=== PATIENT | male | born 1965 | race Caucasian/White ===

== ENCOUNTER 2018-12-27 22:57 | Emergency (ER) | payer MEDICAID, SELFPAY ==
[2018-12-27 22:58] VITALS: BP 167/103; PULSE 106; RESP 20; TEMP 36.6; O2SAT 96; BMI 30.1
--- NOTE | 2018-12-27 23:02 | EKG12_ITS ---
Test Reason : CP Blood Pressure : / mmHG Vent. Rate : 105 BPM Atrial Rate : 105 BPM P-R Int : 142 ms QRS Dur : 094 ms QT Int : 338 ms P-R-T Axes : 060 090 004 degrees QTc Int : 446 ms Sinus tachycardia Rightward axis Cannot rule out Inferior infarct , age undetermined Abnormal ECG Confirmed by EAN AGOSTO ([id number]), associate editor SONDRA HANEY ([id number]) on 01/01/2019 2:40:54 PM Referred By: Confirmed By:EAN AGOSTO
--- NOTE | 2018-12-27 23:02 | RAD_ITS ---
STUDY: X-RAY CHEST REASON FOR EXAM: Male, 53 years old. Chest pain TECHNIQUE: Frontal view COMPARISON: None. FINDINGS: The lungs are expanded. Possible left suprahilar infiltrate. Cardiomegaly. Normal mediastinum and javi. Prominence of central pulmonary arteries. Normal visualized aortic arch and descending thoracic aorta. Normal visualized thoracic spine. Normal visualized ribs, clavicles, and shoulders. There is no demonstrated abnormality of the visualized soft tissue structures of the upper abdomen. RAD/Chest 1 View (Portable) IMPRESSION: Cardiomegaly and central pulmonary vascular prominence. Possible left suprahilar infiltrate. Electronically Signed: Esteban Coppola DO at 23:21 EDT Tel [phone], Service support ,
[2018-12-27 23:20] VITALS: O2SAT 96
[2018-12-27 23:22] LABS: Hematocrit 36.2 % (40-54); Hemoglobin 11.6 g/dL (13.0-16.5); Mean Corpuscular Hgb 29.7 pg (27.0-32.0); Mean Corpuscular Volume 92.6 fL (80-94); Mean Platelet Vol. 10.3 fl (6.2-12.0); POSITIVE COUNT YES; POSITIVE MORPHOLOGY YES; Platelet Count 209 K/mm3 (150-450); RBC Distribution Width CV 14.8 % (11.6-14.6); RBC Distribution Width SD 49.4 fl (35.1-43.9); Red Blood Count 3.91 M/mm3 (4.6-6.2); White Blood Count 13.2 K/mm3 (4.4-11.0)
[2018-12-27 23:24] LABS: Differential Indicated MANUAL DIFF
--- NOTE | 2018-12-27 23:30 | ED.VIS.GEN ---
History of Present Illness Chief Complaint: Chest Pain Narrative: Patient is a 53-year-old male who presents with shortness of breath. This is been going on for about 6 weeks. He also complains of cough and wheezing. He took some leftover steroid and antibiotic actually from many years ago. He states he had transient improvement but again worsened. He was seen in urgent care and prescribed doxycycline and a steroid. He took these and again transiently improved but has been more short of breath the last couple of days. He has nonproductive cough. He denies any fever chest pain nausea vomiting. He denies any medical history he takes no daily prescription medications. He has completed the doxycycline and steroids. Past Medical History - Allergies and Home Meds Allergies/Adverse Reactions: Allergies No Known Allergies Allergy (Verified 12/27/18 22:57) Primary Care Physician: Gopal Garcia MD [Primary Care Provider] - Past Medical History: None Smoking Status: Current every day smoker Review of Systems All systems negative except as indicated General: Denies: Fever Cardiovascular: Denies: Chest pain Respiratory: Reports: Dyspnea, Cough. Denies: Sputum Gastrointestinal: Denies: Nausea, Vomiting, Diarrhea Physical Exam Vital Signs/Narrative: Vital Signs Temp Pulse Resp BP Pulse Ox 12/27/18 23:20 96 12/27/18 22:58 97.9 F 106 H 20 H 167/103 H 96 General: Well nourished Head: Normocephalic Eyes: EOMI ENT: Moist mucous membranes Neck: Supple Cardiovascular: - - Heart is regular tachycardia no murmur gallop rub Respiratory: No distress, - - Scattered expiratory wheezing lightly diminished air exchange no distress speaking full sentences no increased work of breathing or retractions. Negative for: CTA bilaterally Abdomen: Soft, Nontender Skin: Normal color Neurological: Alert Psychological: - - Anxious with pressured speech Diagnostic/Tx/Re-eval Impressions Chest X-Ray 12/27/18 23:02 IMPRESSION: Cardiomegaly and central pulmonary vascular prominence. Possible left suprahilar infiltrate. Electronically Signed: Esteban Coppola DO at 23:21 EDT Tel [phone], Service support , 12/27/18 23:02 Chest 1 View (Portable) [RAD] Stat Laboratory Results 12/27/18 12/27/18 23:15 23:15 WBC 13.2 H RBC 3.91 L Hgb 11.6 L Hct 36.2 L MCV 92.6 MCH 29.7 MCHC 32.0 RDW Std Deviation 49.4 H RDW Coeff of Ismael 14.8 H Plt Count 209 MPV 10.3 Neut % (Auto) Not Reportable Absolute Neuts (auto) 8.2 H Absolute Lymphs (auto) 4.09 Total Counted 100 Neutrophils % (Manual) 61 Band Neutrophils % 1 Lymphocytes % (Manual) 31 Monocytes % (Manual) 5 Eosinophils % (Manual) 1 Metamyelocytes % 1 Nucleated RBCs/100 WBC 1 Diff Path Review May foll Platelet Estimate ADEQUATE RBC Morphology NORM C+C Sodium 142 Potassium 3.6 Chloride 108 H Carbon Dioxide 28.0 Anion Gap 6 BUN 24 H Creatinine 0.72 Estim Creat Clear Calc 125.33 Est GFR (MDRD) Af Amer 149 Est GFR (MDRD) Non-Af 123 BUN/Creatinine Ratio 33.5 H Glucose 124 H Calcium 8.1 L Troponin I Cancelled - Medical Decision Making As soon as I entered the room the patient immediately notified me that he was not willing to stay in the hospital. Before I can complete the history he was already asking how quickly he can be discharged. He was hesitant to wait for laboratory studies although he was agreeable. Chest x-ray was taken off of protocol. This shows cardiomegaly with central vascular prominence without overt CHF or pulmonary edema. There is questionable left-sided infiltrate. His presentation is suggestive of pneumonia. He was given IV Levaquin. Labs returned notable for white count of 13.2. I was with a critical patient and on return I was notified by nursing that the patient had eloped from the emergency department. He was not willing to wait to speak to me regarding results. I did have nurse call him to notify them that he did have pneumonia and we will call in a prescription for Levaquin. ED Disposition - Plan for ED Patient: Diagnosis: Community acquired pneumonia Referrals: Gopal Garcia MD [Primary Care Provider] -
[2018-12-27 23:39] LABS: Anion Gap 6 (5-15); BUN 24 mg/dL (7-18); BUN/Creat Ratio 33.5 RATIO (10-20); Calcium,Total 8.1 mg/dL (8.5-10.1); Chloride 108 mmol/L (98-107); Creatinine, Serum 0.72 mg/dL (0.70-1.30); EST Glomerular Filtration Rate 123 mL/min (>60); Est Glom Filt Rate - Afr Amer 149 mL/min (>60); Estimated Creatinine Clearance 125.33 ml/min; Glucose 124 mg/dL (74-106); Potassium 3.6 mmol/L (3.5-5.1); Sodium Level 142 mmol/L (136-145)
[2018-12-27 23:41] VITALS: PULSE 97; RESP 12
[2018-12-27] MEDS: Ipratropium/Albuterol Sulfate 3 ML AMPUL.NEB INHALATION (23:41)
[2018-12-27 23:48] LABS: Eosinophil 1 % (0-5); Lymphocyte 31 % (19-41); Metamyelocyte 1 % (0-1); Monocyte 5 % (0-10); Neutrophil-Band 1 % (0-5); Neutrophil-Segmented 61 % (47-70); Nucleated Red Bld Cells,Manual 1 % (0-5); Total Cells Counted 100 (MANUAL DIFF)
[2018-12-27 23:49] LABS: Absolute Lymphocyte Count 4.09 X10^3/uL (0.83-4.51); Absolute Neutrophil Count 8.2 X10^3/uL (2.0-7.7); Lymphocyte # 4.09 X10^3/ul (4.0); Neutrophil # 8.18 X10^3/uL (2.7-7.7); Platelet Estimate ADEQUATE (ADEQ); Red Cell Morphology NORM C+C NORMAL (NORM C&C)
[2018-12-27] MEDS: levoFLOXacin IV 500 MG/100 ML BAG 100 MG IV (23:52)
[2018-12-28 01:00] VITALS: PULSE 107; RESP 16; O2SAT 96
--- NOTE | 2018-12-28 01:21 | ED.RN ---
PT NOTED TO BE ANXIOUS IN ROOM AND PULLED OUT IV. PT STATES HE NEEDS TO GO HOME NOW AND CANNOT WAIT FOR D/C INSTRUCTIONS.
--- NOTE | 2018-12-28 01:22 | ED.RN ---
DR GALICIA MADE AWARE THAT PATIENT LEFT. VD VERBAL ORDER FROM DR GALICIA TO CALL IN RX TO [facility] FOR LEVAQUIN 500 MG PO DAILY X 7 DAYS. NO REFILLS. PHONED PATIENT AND INFORMED HIM TO [facility] [employer] [facility] @ [facility] TOMORROW.
[2018-12-28 01:25] VITALS: PULSE 107; RESP 16; O2SAT 96
[2018-12-28 12:45] LABS: Pathologist Review Reviewed
== END 2018-12-28 02:12 | disposition home or self-care (01) ==
LOC: ED 23:35
PROVIDERS: Emergency Provider Emergency Medicine; Family Provider Family Medicine; PCP Family Medicine
DX: J18.9 Pneumonia, unspecified organism (principal); F17.200 Nicotine dependence, unspecified, uncomplicated
CPT/HCPCS: 71045; 80048; 85025; 93005; 94640; 96365; 99285; A4216

== ENCOUNTER 2018-12-29 09:51 | Emergency (ER) | payer MEDICAID, SELFPAY ==
[2018-12-29 09:52] VITALS: BP 159/104; PULSE 88; RESP 25; TEMP 36.7; O2SAT 96; BMI 30.1
--- NOTE | 2018-12-29 09:53 | EKG12_ITS ---
Test Reason : SOB Blood Pressure : / mmHG Vent. Rate : 086 BPM Atrial Rate : 086 BPM P-R Int : 136 ms QRS Dur : 098 ms QT Int : 382 ms P-R-T Axes : 010 046 045 degrees QTc Int : 457 ms Normal sinus rhythm Normal ECG Confirmed by EAN AGOSTO ([id number]), editorial assistant SONDRA HANEY ([id number]) on 01/01/2019 2:28:38 PM Referred By: DAMION/BARB Confirmed By:EAN AGOSTO
--- NOTE | 2018-12-29 09:54 | CT_ITS ---
STUDY: CT ABDOMEN AND PELVIS WITH CONTRAST REASON FOR EXAM: Male, 53 years old. Abdominal distention. RADIATION DOSAGE (If Supplied By Facility): CTDIvol = ( 13.01 ) mGy, DLP = ( 1011.32 ) mGycm TECHNIQUE: Transaxial images were obtained from the dome of the diaphragm to the symphysis pubis without oral contrast. 100CC IV Isovue 300 was administered. Sagittal and coronal images were reconstructed. Individualized dose optimization techniques were used for this CT. COMPARISON: None. FINDINGS: Thickening of the left major fissure with mild increased markings in the posterior aspect of the lingular segment of the left upper lobe. There is a 7 mm noncalcified nodule in the right lower lobe adjacent to the right hemidiaphragm. A 7 mm nodule is also seen in the lateral aspect of the right lower lobe as seen on axial image #5. Small pericardial effusion. Multiple bilateral hypodense nodules within the liver. Metastatic disease should be ruled out. Hepatomegaly. Normal gallbladder and extrahepatic biliary system. Normal spleen. Normal pancreas. Normal bilateral adrenal glands. Normal right kidney. Normal left kidney. Nonspecific mild degree of bilateral perinephric stranding. Normal visualized stomach. Normal small intestine. Normal colon. The appendix is visualized and appears normal. There is diffuse atherosclerotic calcification of the abdominal aorta, without a demonstrated aneurysm. Normal inferior vena cava. Normal retroperitoneum. Normal urinary bladder. There is a small umbilical hernia containing fat. Small bilateral inguinal hernias containing fat. There are degenerative changes of the visualized lumbar spine. CT/Abdomen/Pelvis W IV Cont ONLY IMPRESSION: Multiple hypodense lesions within the liver as described. Metastatic deposits should be ruled out. With the patient's history of a infiltrate in the left upper lobe, an underlying left upper lobe mass lesion should be ruled out. Hepatomegaly. Small pericardial effusion. There are 2 subcentimeter noncalcified nodular densities in the right lower lobe. Electronically Signed: Portillo Asher, at 10:58 EDT , Service support ,
[2018-12-29 09:55] VITALS: O2SAT 97
--- NOTE | 2018-12-29 09:58 | NURSING ---
NO OLD EKGS
[2018-12-29 09:59] VITALS: BP 144/95; PULSE 91; RESP 19; TEMP 36.7; O2SAT 97
--- NOTE | 2018-12-29 10:05 | ED.DCSUM_ITS ---
- ER Visit Summary Date of Service: 12/29/18 Chief Complaint: Shortness of breath History of Present Illness: The patient is a 53 M no significant past medical history. Prior knee scope years ago. Patient is on no chronic medications. States the last 2 months he has had intermittent shortness of breath and cough. He treated himself with prior antibiotics he had and yjlj-elz-solqegy medications. He has progressively gotten worse and not significantly better. In the last several weeks he has noticed weight gain and fluid collection and swelling in both lower extremities. He denies any history of cardiac disease. He has never had a DVT or PE. He has had no recent travel, surgery or hospitalization. He was actually seen in this emergency department 2 days ago. At that time the working diagnosis was either pneumonia or early stages of congestive heart failure. Patient was concerned about being able to get to work and other issues so he left prior to the work-up being completed or being discharged. He was called by the emergency department and started on antibiotic Levaquin. He has progressively gotten more short of breath over the last several days. He is having to sit upright in a chair to sleep at night to help him breathe. No significant chest pain over the last several months except for some left rib cage pain. No hemoptysis. Physical Examination: Middle-aged male no acute distress. Vital signs blood pressure is elevated 159/104. He is not treated for hypertension. Afebrile. Pulse ox 96% on room air no hypoxia. HEENT exam unremarkable. Neck nontender no lymphadenopathy. No JVD. Lungs clear to auscultation. Slightly diminished in the bases. No rhonchi. No significant wheezing. Heart regular rhythm no obvious murmur. Rate about 85-90. Abdomen is distended. Not specifically tender. Normal bowel sounds. No peritoneal signs. Patient is moving all 4 extremities. They are neurovascularly intact. He does have 1+ pitting edema both lower extremities. Calves are nontender. No cords. Neurologically he is awake and alert with no focal motor deficits. Skin is unremarkable. Test Results: Chest x-ray has appears to be a left hilar pneumonia possibly a left hilar mass. CT abdomen and pelvis with IV contrast shows liver lesions very concerning for possible metastases. There is also hepatomegaly. There is a small pericardial effusion. EKG sinus rhythm rate 86 no acute signs of IA or ischemia. White count of 13.8. Hemoglobin of 12. Electrolytes are normal. Normal BUN and creatinine is 0.6. Liver enzymes are normal except for an ALT slightly elevated at 69 the rest are normal. Troponin is normal. His d-dimer is normal at 0.27 BNP is pending. Emergency Department Course and Treatment: I reviewed the patient's work-up from several days ago. This chest x-ray was portable one view showed some cardiomegaly and possible early pulmonary edema versus a left upper lobe infiltrate. He had a mild anemia. Chemistries are unremarkable with normal renal function. Multiple repeat exams unchanged. The patient I have had long discussions on the possible diagnosis and will be continued to be treated he is currently on antibiotic for a left upper lobe pneumonia. The bigger concern is for left hilar lung mass and if that is the case with possible liver metastases. This is all to be determined. Patient absolutely does not want to be admitted. He wants to be worked up as an outpatient. Treatment Plan: I spoke with Dr. Spenser Muñoz of [facility] oncology. He will see the patient today in his office at 3:45 PM. Patient is aware that and will go to their office later today. Disposition: Discharge Impression: Acute dyspnea Left upper lobe pneumonia Concern for left hilar mass with liver metastases to be determined on further evaluation Acute bilateral pedal edema This note was generated with [employer] dictation software. It may contain incorrect words, spelling, and punctuation that were not noted in review of the chart prior to signing ED Disposition - Plan for ED Patient: Referrals: Gopal Garcia MD [NON-STAFF] -
--- NOTE | 2018-12-29 10:14 | RAD_ITS ---
STUDY: X-RAY CHEST REASON FOR EXAM: Male, 53 years old. Chest pain. TECHNIQUE: PA and lateral views of the chest. COMPARISON: Comparison is made with prior study March 28, 2019. FINDINGS: EKG electrodes are seen. Worsening of the left upper lobe infiltrate. Radiographic follow-up is recommended until clearing. There is no demonstrated pleural abnormality. Normal size heart. Normal mediastinum and javi. Normal visualized pulmonary arteries. Normal visualized aortic arch and descending thoracic aorta. Normal visualized thoracic spine. Normal visualized ribs, clavicles, and shoulders. There is no demonstrated abnormality of the visualized soft tissue structures of the upper abdomen. RAD/Chest PA and Lateral IMPRESSION: Left upper lobe infiltration. Radiographic follow-up is recommended until clearing. Electronically Signed: Portillo Asher, at 10:53 EDT , Service support ,
[2018-12-29 10:15] LABS: Hematocrit 37.8 % (40-54); Hemoglobin 12.2 g/dL (13.0-16.5); Mean Corp Hgb Conc 32.3 g/dL (32-36); Mean Corpuscular Hgb 30.2 pg (27.0-32.0); Mean Corpuscular Volume 93.6 fL (80-94); Mean Platelet Vol. 10.7 fl (6.2-12.0); POSITIVE COUNT YES; POSITIVE MORPHOLOGY YES; Platelet Count 209 K/mm3 (150-450); RBC Distribution Width CV 14.5 % (11.6-14.6); RBC Distribution Width SD 49.6 fl (35.1-43.9); Red Blood Count 4.04 M/mm3 (4.6-6.2); White Blood Count 13.8 K/mm3 (4.4-11.0)
[2018-12-29 10:32] LABS: AST(SGOT) 29 U/L (15-37); Alanine Aminotransfer ALT/SGPT 69 U/L (16-61); Albumin, Serum 3.2 g/dL (3.2-5.0); Alkaline Phosphatase 52 U/L (45-117); BUN 20 mg/dL (7-18); Bilirubin, Direct 0.06 mg/dL (0.00-0.30); Calcium,Total 8.1 mg/dL (8.5-10.1); Chloride 103 mmol/L (98-107); Creatinine, Serum 0.67 mg/dL (0.70-1.30); EST Glomerular Filtration Rate 134 mL/min (>60); Est Glom Filt Rate - Afr Amer 162 mL/min (>60); Estimated Creatinine Clearance 134.68 ml/min; Globulin 3.6 g/dL (2.2-4.2); Glucose 89 mg/dL (74-106); Potassium 3.3 mmol/L (3.5-5.1); Protein, Total 6.8 g/dL (6.4-8.2); Sodium Level 139 mmol/L (136-145)
[2018-12-29 10:33] LABS: Anion Gap 5 (5-15)
--- NOTE | 2018-12-29 10:40 | CM.ED ---
SOCIAL WORK INFORMANT: DR. DAY REASON FOR REFERRAL: RESOURCES/FINANCIAL MET WITH PATIENT IN ROOM. INTRODUCED ROLE AND REASON FOR REFERRAL. PATIENT STATES CANCELLED INSURANCE A COUPLE MONTHS AGO BEFORE ALL THIS HAPPENED. PATIENT STATES HOURS AT WORK VARY AND IS UNSURE IF HE WOULD QUALIFY FOR MEDICAID. DISCUSSED HCAP FORM AND ENCOURAGED PATIENT TO COMPLETE FORM AND SEND BACK TO HOSPITAL. PATIENT STATES WOULD BE ABLE TO WORK OUT A PAYMENT PLAN. PATIENT REPORTS HAS NOT BEEN TO PRIMARY CARE PHYSICIAN IN SOME TIME. PATIENT GIVEN LIST OF LOCAL PRIMARY CARE PHYSICIAN'S IF NEEDED. ALL QUESTIONS ANSWERED. PATIENT DENIES ANY FURTHER NEEDS AT THIS TIME. DR. DAY UPDATED. PLAN: HOME WITH RESOURCES PROVIDED. LULU SCHMITZ, BUSINESS ANALYST, POWER AND RECOVERY SUPERVISOR.
[2018-12-29 11:38] LABS: D-Dimer Quantitative (DVT/PE) 0.27 FEU/ug/m (0.27-0.49)
[2018-12-29 11:49] LABS: Differential Indicated MANUAL DIFF
[2018-12-29 11:53] LABS: Eosinophil 1 % (0-5); Lymphocyte 22 % (19-41); Metamyelocyte 3 % (0-1); Monocyte 3 % (0-10); Myelocyte 1 (0-0); Neutrophil-Band 1 % (0-5); Neutrophil-Segmented 69 % (47-70); Platelet Estimate ADEQUATE (ADEQ); Red Cell Morphology NORM C+C NORMAL (NORM C&C); Total Cells Counted 100 (MANUAL DIFF)
[2018-12-29 11:54] LABS: Absolute Neutrophil Count 9.6 X10^3/uL (2.0-7.7)
--- NOTE | 2018-12-29 12:17 | ED.DEP ---
ED Disposition - Plan for ED Patient: Disposition: Home or Assisted Living Instructions: PNEUMONIA (Adult) Referrals: Spenser Muñoz, [STAFF PHYSICIAN] - As soon as possible Additional Instructions: Continue your current antibiotic. You are scheduled for an appointment today to be seen by Dr. Spenser Muñoz at 3:45 PM in his office on the [facility] called the specialty center on [facility] and [address]. You will need further test to evaluate the concern for possible left lung mass and if so any spread outside the lung. Call me with any questions or concerns.
[2018-12-29 12:20] LABS: BNP,B-Type NATRIURETIC PEPTIDE 26.1 pg/mL (0-100)
[2019-01-01 13:24] LABS: Pathologist Review Reviewed
== END 2018-12-29 12:31 | disposition home or self-care (01) ==
PROVIDERS: Emergency Provider Emergency Medicine
DX: J18.9 Pneumonia, unspecified organism (principal); R60.9 Edema, unspecified; R06.09 Other forms of dyspnea; M79.89 Other specified soft tissue disorders; R91.8 Other nonspecific abnormal finding of lung field; K76.9 Liver disease, unspecified; R16.0 Hepatomegaly, not elsewhere classified; I31.3 Pericardial effusion (noninflammatory); R03.0 Elevated blood-pressure reading, without diagnosis of hypertension; Z72.0 Tobacco use; Z79.899 Other long term (current) drug therapy
CPT/HCPCS: 71046; 74177; 80048; 80076; 83880; 84484; 85025; 85379; 93005; 99284; Q9967; A4216

== ENCOUNTER 2019-02-08 23:10 | Emergency (ER) | payer MEDICAID, SELFPAY ==
[2019-02-08 23:12] VITALS: BP 145/95; PULSE 110; RESP 18; TEMP 36.8; O2SAT 93; BMI 26.5
--- NOTE | 2019-02-08 23:29 | RAD_ITS ---
STUDY: X-RAY CHEST REASON FOR EXAM: Male, 53 years old. Lung cancer and filling shortness of breath. TECHNIQUE: Single AP portable view of the chest. COMPARISON: 29 December 2018 FINDINGS: Compared to and December 2018 there is reduced. Airspace disease overlying the left upper lobe. There is no demonstrated pleural abnormality. Heart size is enlarged with underlying pericardial effusion not excluded Normal mediastinum and javi. Normal visualized pulmonary arteries. Normal visualized aortic arch and descending thoracic aorta. Normal visualized thoracic spine. Normal visualized ribs, clavicles, and shoulders. There is no demonstrated abnormality of the visualized soft tissue structures of the upper abdomen. RAD/Chest 1 View (Portable) IMPRESSION: Reduced left upper lobe airspace disease from previous prominent heart size and underlying pericardial effusion not excluded as seen on prior CT exam. Electronically Signed: Jevon Boateng DO at 23:42 EDT , Service support ,
[2019-02-08 23:42] VITALS: TEMP 37.1; O2SAT 96; O2SAT 97
[2019-02-08] MEDS: HYDROmorphone 1 MG/ML Syringe IV (23:54)
[2019-02-08 23:57] LABS: Hemoglobin 8.5 g/dL (13.0-16.5); Mean Corp Hgb Conc 31.5 g/dL (32-36); Mean Corpuscular Hgb 29.6 pg (27.0-32.0); Mean Corpuscular Volume 94.1 fL (80-94); Mean Platelet Vol. 11.7 fl (6.2-12.0); POSITIVE COUNT YES; POSITIVE MORPHOLOGY YES; RBC Distribution Width CV 15.9 % (11.6-14.6); RBC Distribution Width SD 51.5 fl (35.1-43.9); Red Blood Count 2.87 M/mm3 (4.6-6.2)
[2019-02-09 00:01] LABS: International Normalized Ratio 1.1
[2019-02-09 00:02] LABS: Differential Indicated MANUAL DIFF; Partial Thromboplast Time 25.3 Seconds (24.1-36.2)
[2019-02-09 00:14] VITALS: BP 135/67; PULSE 101; RESP 20; TEMP 37.2; O2SAT 98
[2019-02-09 00:14] LABS: Platelet Count 46 K/mm3 (150-450)
[2019-02-09 00:24] LABS: AST(SGOT) 28 U/L (15-37); Alanine Aminotransfer ALT/SGPT 42 U/L (16-61); Albumin, Serum 2.4 g/dL (3.2-5.0); Alkaline Phosphatase 91 U/L (45-117); Anion Gap 7 (5-15); BUN 24 mg/dL (7-18); BUN/Creat Ratio 27.1 RATIO (10-20); Bilirubin, Direct 0.08 mg/dL (0.00-0.30); Calcium,Total 7.6 mg/dL (8.5-10.1); Chloride 88 mmol/L (98-107); Creatinine, Serum 0.88 mg/dL (0.70-1.30); EST Glomerular Filtration Rate 96 mL/min (>60); Est Glom Filt Rate - Afr Amer 116 mL/min (>60); Estimated Creatinine Clearance 102.54 ml/min; Globulin 3.8 g/dL (2.2-4.2); Glucose 223 mg/dL (74-106); Lipase 172 U/L (73-393); Potassium 2.2 mmol/L (3.5-5.1); Protein, Total 6.2 g/dL (6.4-8.2); Sodium Level 139 mmol/L (136-145)
--- NOTE | 2019-02-09 00:30 | CT_ITS ---
STUDY: CTA CHEST REASON FOR EXAM: Male, 53 years old. Shortness of breath. Small cell lung cancer, undergoing radiation and immune therapy. RADIATION DOSAGE (If Supplied By Facility): CTDIvol = ( 16.20 ) mGy, DLP = ( 614.54 ) mGycm TECHNIQUE: The examination was performed with the intravenous administration of IV 75mL Isovue-370 75ML. Post-processing of the angiographic images was performed, with MIP reconstructed images. Individualized dose optimization techniques were used for this CT. COMPARISON: Chest radiographs 02/08/2019. CT abdomen pelvis 12/29/2018. No prior chest CT for comparison.. FINDINGS: Heart and great vessels: No pulmonary embolus. The left main, lobar, and proximal segmental pulmonary arteries are encased and markedly narrowed by a large left hilar mass. No dissection or aneurysm of the thoracic aorta. Heart size within normal limits. 1.9 cm thick simple density moderate in sized pericardial effusion. Coronary artery atherosclerosis which is not well evaluated because of cardiac motion. The left superior pulmonary veins are also encased by the mass. Lungs, pleura: Irregular in contour nodular densities left upper lobe, 1.4 x 0.7 cm diameter in the apical posterior segment series 2 image 227, and more inferiorly a 1.5 cm nodule which extends toward the left hilar mass. Several inferior lingular nodules, largest 1.0 cm diameter series 2 image 183. The left main, lobar and proximal segmental bronchi are encased by the left hilar mass, with wall thickening of more peripheral branches. There is groundglass attenuation and nodular interstitial prominence adjacent to the left hilar mass particularly along the cephalad aspect. And nodular thickening along the cephalad aspect of the fissure. 7 mm nodule along the fissure between the right middle lobe and right upper lobe anteriorly, series 2 image 172, configuration suggestive of a lymph node. 6 mm nodule posterior lateral aspect right lung base series 2 image 130. Otherwise mild dependent atelectasis in the right lung. The trachea is elongated in AP direction compatible with underlying COPD. Mediastinum: Large confluent mass centered in the left hilum, encasing left hilar bronchovascular structures, and contiguous with confluent adenopathy which surrounds the distal trachea and alana, abuts the left lateral aspect and anterior esophagus, and surrounds about three quarters of the aortic arch with no fat plane between the mass and the aorta. Separate from the mass, are several enlarged paratracheal, prevascular and bilateral supraclavicular lymph nodes which are larger on the left. Osseous: No fracture or acute osseous abnormality. No aggressive osseous lesions are evident. Chest wall: Right axillary adenopathy. Nodular skin thickening in the anterior aspect of the right axilla. Upper abdomen: No acute findings. Mild enlargement of both adrenal glands but without definite focal mass. The hypodense hepatic masses seen on the previous CT abdomen and pelvis are difficult to visualize. A small lesion is faintly visible in the anterior aspect of the left lobe. CT/CTA Chest W/WO Contrast IMPRESSION: No pulmonary embolus. Moderate simple density pericardial effusion. Large mass centered in the left hilum encasing and narrowing bronchovascular structures including the left main and lobar pulmonary arteries and bronchi. Likely metastatic nodular densities in the adjacent left upper lobe. Ground glass attenuation and interstitial prominence in the left perihilar lung could represent interstitial spread of tumor, congestive changes due to vascular encasement, or edema or pneumonia or a combination. Metastatic mediastinal and left greater than right supraclavicular adenopathy. Nodular thickening of the skin in the right anterior axilla with underlying adenopathy also concerning for metastatic disease. The hepatic lesions seen on the previous CT abdomen and pelvis are difficult to visualize suggesting response to treatment. There is adrenal enlargement which is new compared to prior but without focal mass; this could represent hyperplasia. Comparison with prior chest CT would be helpful. Electronically Signed: Higinio Ruiz, at 1:36 EDT Tel , Service support ,
--- NOTE | 2019-02-09 00:33 | ED.RN ---
lab called with critical lab results. potassium level 2.2. Dr. Duckworth made aware no new orders at this time
[2019-02-09 00:44] LABS: Corrected WBC 15.7 K/mm3 (4.4-11.0); Lymphocyte 18 % (19-41); Metamyelocyte 13 % (0-1); Monocyte 2 % (0-10); Myelocyte 3 (0-0); Neutrophil-Band 24 % (0-5); Neutrophil-Segmented 40 % (47-70); Nucleated Red Bld Cells,Manual 17 % (0-5); Total Cells Counted 100 (MANUAL DIFF)
[2019-02-09 00:46] LABS: Toxic Granulation 1+
[2019-02-09 00:47] LABS: Anisocytosis 1+; Hypochromasia 1+; Platelet Estimate MKD DEC (ADEQ); Polychromasia RARE
[2019-02-09 00:48] LABS: Spherocyte RARE
[2019-02-09 00:49] LABS: Macrocytosis RARE
[2019-02-09 00:51] LABS: Absolute Lymphocyte Count 2.93 X10^3/uL (0.83-4.51); Absolute Neutrophil Count 10.1 X10^3/uL (2.0-7.7); Lymphocyte # 2.93 X10^3/ul (4.0); Neutrophil # 10.05 X10^3/uL (2.7-7.7)
[2019-02-09] MEDS: Potassium Chloride 10mEq/100mL 10 MEQ/100 ML IV.SOLN. 100 MEQ IV BOLUS ×2 (00:59→02:47)
[2019-02-09 01:13] VITALS: BP 138/80; PULSE 102; RESP 21; TEMP 37.1; O2SAT 95
[2019-02-09 01:54] LABS: Magnesium 1.5 mg/dL (1.6-2.6)
[2019-02-09 02:00] VITALS: BP 135/85; PULSE 90; RESP 20; TEMP 37.2; O2SAT 98
--- NOTE | 2019-02-09 02:15 | ED.VISSUMM ---
- ER Visit Summary Date of Service: 02/09/19 Chief Complaint: Shortness of breath History of Present Illness: The patient is a 53 M who tells me that he is currently undergoing treatment for small cell lung cancer. A few days ago began to have a wound appear in the right axilla. He states he was put on Augmentin yesterday. Tonight he states he abruptly got short of breath. He notes his legs are more swollen than normal. He notes that he has been not been able to take his potassium because of how large the pills are. He notes that his right arm is swollen compared to the left. He notes redness from an IV site on the right forearm. Female the room notes that it is gotten worse. He notes minimal cough. His last chemotherapy was about 2 weeks ago. He denies fever. Physical Examination: Afebrile vital signs are stable heart rate noted to be 100-110. Gen: Well-nourished well-developed Head: Normocephalic atraumatic Eyes: Perrl EOMI ENT: TMs clear no rhinorrhea moist mucous membranes Neck: Supple no lymphadenopathy no JVD nontender CVS: Regular rate tachycardic rhythm no murmurs normal S1-S2 Respiratory: Patient with mild tachypnea but no distress clear to auscultation bilaterally chest nontender Abdomen: Soft nontender nondistended normal bowel sounds no masses Back: Nontender Extremity: 2+ pitting edema of the lower extremities. Right forearm shows erythema extending posteriorly up onto the upper arm in the medial aspect. I do not palpate any cords. He had good capillary refill though the arm is diffusely swollen. In the right axilla on the chest wall appears to be a mass possibly tumor versus abscess but there does not appear to be anything drainable. Skin: Patient is pale no rash Neuro: alert orientated ?3 CN II-XII intact normal strength sensation reflexes gait cerebellar Psych: Normal affect normal mood Test Results: White count 15.7 hemoglobin 8.5 platelets of 46. Potassium 2.2. Troponin negative lactic acid 3.3. Chest x-ray no acute findings. CTA of the chest I would encourage the reader of this note to see the radiologist read regarding the tumors encasing vasculature. There is no noted pulmonary embolism. Noted pericardial effusion Emergency Department Course and Treatment: Patient received potassium both IV and p.o. He also received a dose of vancomycin. He tells me he is feeling better. Patient tells me he cannot stay in the hospital. He does not want to be transferred. He states he has a lot to do and needs to take care of his dogs. I strongly urged and basically back the patient to stay because I do not believe he is going to get better as an outpatient. He has the capacity to make the decision to sign out AMA and is exercising this right. He could have a DVT in the arm he needs to have an outpatient ultrasound. He does not have MRSA coverage and when to add in Bactrim. He has multiple issues that really should be addressed on an inpatient basis. For he continues to refuse. he needs to follow-up with his doctors as soon as possible. Impression: 1. Anemia 2. Thrombocytopenia 3. Severe hypokalemia 4. Cellulitis of the right arm 5. Dyspnea 6. Small cell lung cancer 7. Left AGAINST MEDICAL ADVICE 8. Edema 9. Pericardial effusion This note was generated with [employer] dictation software. It may contain incorrect words, spelling, and punctuation that were not noted in review of the chart prior to signing Capacity - Capacity Assessment Tool Can the patient make a choice & communicate that choice?: Yes Can the patient understand benefits, risks and alternatives?: Yes Can the patient make a logical, rational choice?: Yes Is the choice the patient makes consistent w/ their values?: Yes Is there an impending, emergent risk to the patient?: Yes Does the patient have an Advance Directive?: Yes Is there a Surrogate Available?: No i.e. HCPOA: No i.e. close relative (spouse, child, parent, sibling)?: No ED Disposition - Plan for ED Patient: Disposition: Against Medical Advice Instructions: Cellulitis, Hypokalemia Prescriptions: Smz/Tmp Ds [Bactrim Ds] 1 tab PO BID #14 tab Prescription Printed Referrals: Spenser Muñoz DO [STAFF PHYSICIAN] - As soon as possible Additional Instructions: You have multiple reasons that you need to be admitted into the hospital for. You may return at any time for repeat examination and probable admission. You need to see your doctors as soon as possible. I have written for you to have a outpatient ultrasound of your arm to rule out blood clot. Your symptoms most likely are going to get worse. I highly urged you to reconsider your decision to leave and not stay in the hospital.
[2019-02-09 02:21] LABS: Lactic Acid 3.3 mmol/L (0.4-2.0)
[2019-02-09 04:54] VITALS: BP 147/86; PULSE 89; RESP 22; O2SAT 96
[2019-02-09 05:44] LABS: Reflex Lactate? Y
[2019-02-09 14:33] LABS: Pathologist Review Reviewed
== END 2019-02-09 04:55 | disposition left against medical advice (07) ==
PROVIDERS: Emergency Provider Emergency Medicine; Family Provider Family Medicine; PCP Family Medicine
DX: E87.6 Hypokalemia (principal); L03.113 Cellulitis of right upper limb; Z53.29 Procedure and treatment not carried out because of patient's decision for other reasons; C34.90 Malignant neoplasm of unspecified part of unspecified bronchus or lung; D69.6 Thrombocytopenia, unspecified; D64.9 Anemia, unspecified; I31.3 Pericardial effusion (noninflammatory); M79.89 Other specified soft tissue disorders; R60.9 Edema, unspecified; R06.00 Dyspnea, unspecified; Z72.0 Tobacco use; Z79.899 Other long term (current) drug therapy
CPT/HCPCS: 71045; 71275; 80048; 80076; 83605; 83690; 83735; 84484; 85025; 85610; 85730; 87040; 93005; 96365; 96366; 96367; 96375; 99284; J7030; J7040; Q9967; A4216

== ENCOUNTER 2019-02-09 10:12 | Inpatient (IN) | payer MEDICAID, SELFPAY ==
[2019-02-08 23:12] VITALS: BMI 26.5
[2019-02-09] VITALS (11 sets, daily range): BP systolic 142–176; BP diastolic 81–106; PULSE 81–106; RESP 16–20; TEMP 36.1–36.9; O2SAT 93–97; BMI 27.2; BMI 30.5
--- NOTE | 2019-02-09 10:46 | ED.VISSUMM ---
- ER Visit Summary Date of Service: 02/09/19 Chief Complaint: Shortness of breath History of Present Illness: The patient is a 53 M presenting with shortness of breath, abnormal blood work, right arm redness. Patient was seen in the ED last night. He left AGAINST MEDICAL ADVICE. He has a history of stage IV small cell lung cancer. His last chemo was 2 weeks ago. In the ED last night he was found to have low potassium, low hemoglobin, right arm cellulitis, pneumonia. He had a CTA of his chest which showed no pulmonary embolus. Large mass centered in the left hilum encasing and narrowing bronchovascular structures including the left main and lobar pulmonary arteries and bronchi. Ground glass attenuation and interstitial prominence in the left perihilar lung could represent interstitial spread of tumor, congestive changes due to vascular encasement, or edema or pneumonia or a combination. Patient was unable to stay in the hospital. He was given vancomycin, potassium IV replacement. He was sent home on Bactrim. He has not been able to fill this medication. After discussion with his oncologist today he returned to the ED for admission. Physical Examination: Vitals are stable. Patient is afebrile. Alert no acute distress. HEENT exam is unremarkable. Neck is supple. Lungs are clear and equal bilaterally. Heart is regular rate and rhythm. Abdomen is soft nontender nondistended. Extremities symmetric lower extremity edema, right axilla abscess with surrounding erythema Skin is warm and dry. No focal neurologic deficit. Remainder of exam is unremarkable. Emergency Department Course and Treatment: Patient was given IV fluids, Dilaudid, Zofran. He refused EKG. CBC shows white count 15.9, hemoglobin 8.0, platelet 45. Chemistries show potassium 2.6, glucose 179, BUN 22. Troponin is negative. Lactic acid 4.3. Patient was given potassium IV replacement. Discussed with Dr. Nuñez and patient will be admitted. He was given Unasyn and Zithromax IV. Blood cultures were sent earlier today. Disposition: Admission Impression: Right arm cellulitis, hypokalemia, anemia, small cell lung cancer This note was generated with [employer] dictation software. It may contain incorrect words, spelling, and punctuation that were not noted in review of the chart prior to signing ED Disposition - Plan for ED Patient: Referrals: Gopal Garcia MD [Primary Care Provider] -
[2019-02-09 10:50] LABS: Hematocrit 25.3 % (40-54); Mean Corp Hgb Conc 31.6 g/dL (32-36); Mean Corpuscular Volume 94.8 fL (80-94); POSITIVE COUNT YES; POSITIVE MORPHOLOGY YES; Platelet Count 45 K/mm3 (150-450); RBC Distribution Width CV 15.9 % (11.6-14.6); RBC Distribution Width SD 52.6 fl (35.1-43.9); Red Blood Count 2.67 M/mm3 (4.6-6.2)
[2019-02-09] MEDS: 0.9% Normal Saline 1,000 ML 1000 ML IV (10:50)
[2019-02-09] MEDS: Ondansetron 4 MG/2 ML Vial IV (10:50)
[2019-02-09] MEDS: HYDROmorphone 1 MG/ML Syringe IV ×2 (10:50→11:38)
[2019-02-09 10:59] LABS: Differential Indicated MANUAL DIFF
--- NOTE | 2019-02-09 11:03 | ED.RN ---
plt 45 wbc 15.9 and hgb [address] lab[address] dr guido aware
--- NOTE | 2019-02-09 11:04 | RAD_ITS ---
STUDY: X-RAY CHEST REASON FOR EXAM: Male, 53 years old. Shortness of breath. History of lung cancer. TECHNIQUE: Single AP portable view of the chest. COMPARISON: Comparison is made with prior study dated February 08, 2019. FINDINGS: EKG electrodes are seen. Persistent mild increased markings at the left lung base with blunting of the left costophrenic angle. There is mild cardiac enlargement. Normal mediastinum and javi. Normal visualized pulmonary arteries. Normal visualized aortic arch and descending thoracic aorta. Normal visualized thoracic spine. Calcific tendinitis of the right shoulder. There is no demonstrated abnormality of the visualized soft tissue structures of the upper abdomen. RAD/Chest 1 View (Portable) IMPRESSION: Mild increased markings at the left lung base with blunting of the left costophrenic angle. Electronically Signed: Portillo Asher, at 11:32 EDT , Service support ,
--- NOTE | 2019-02-09 11:06 | ED.RN ---
pot 2.6 called from the lab. dr guido aware
[2019-02-09 11:07] LABS: Anion Gap 5 (5-15); BUN 22 mg/dL (7-18); BUN/Creat Ratio 28.3 RATIO (10-20); Calcium,Total 7.3 mg/dL (8.5-10.1); Chloride 95 mmol/L (98-107); Creatinine, Serum 0.78 mg/dL (0.70-1.30); EST Glomerular Filtration Rate 112 mL/min (>60); Est Glom Filt Rate - Afr Amer 135 mL/min (>60); Estimated Creatinine Clearance 115.69 ml/min; Glucose 179 mg/dL (74-106); Potassium 2.6 mmol/L (3.5-5.1); Sodium Level 140 mmol/L (136-145)
[2019-02-09 11:18] LABS: Lactic Acid 4.3 mmol/L (0.4-2.0)
[2019-02-09 11:21] LABS: Blast 1 % (0-0); Lymphocyte 17 % (19-41); Metamyelocyte 4 % (0-1); Monocyte 2 % (0-10); Myelocyte 1 (0-0); Neutrophil-Band 29 % (0-5); Neutrophil-Segmented 42 % (47-70); Nucleated Red Bld Cells,Manual 18 % (0-5); Other WBC Type 1 %; Promyelocyte 3 (0-0); Total Cells Counted 100 (MANUAL DIFF)
[2019-02-09 11:31] LABS: Anisocytosis 1+; Platelet Estimate MOD DEC (ADEQ); Spherocyte RARE
--- NOTE | 2019-02-09 11:31 | NURSING ---
DR MANNING RETURNED CALL
--- NOTE | 2019-02-09 11:32 | NURSING ---
PCU HYPOKALEMIA, LUNG CA KOTSONIS
[2019-02-09 11:33] LABS: Absolute Lymphocyte Count 3.04 X10^3/uL (0.83-4.51); Absolute Neutrophil Count 12.7 X10^3/uL (2.0-7.7); Corrected WBC 17.9 K/mm3 (4.4-11.0)
[2019-02-09] MEDS: 0.9% Normal Saline 1,000 ML 999 ML IV (11:49)
[2019-02-09] MEDS: Potassium Chloride 10mEq/100mL 10 MEQ/100 ML IV.SOLN. 100 MEQ IV BOLUS ×4 (12:35→15:49)
[2019-02-09] MEDS: 0.9% Normal Saline 1,000 ML 125 ML IV (13:15)
[2019-02-09 14:10] LABS: Allen Test POS; Base Excess 16 mmol/L (-2 to +2); Bicarbonate 39.8 mmol/L (22-26); Blood Gas Specimen Type ART; O2 Delivery Device Nasal Can; PO2 75 mmHG (75-100); SITE L Radial; SO2 96 % (95-99); Time Given 1403; Total Carbon Dioxide 41 mmol/L; pCO2 52.4 mmHg (35-45); pH 7.49 (7.35-7.45)
--- NOTE | 2019-02-09 14:10 | PCM.HP.STD ---
<Gus Jain - Last Filed: 02/09/19 14:10> Problem List (1) Pneumonia Status: Acute (2) Cellulitis Status: Acute (3) Sepsis Status: Acute (4) Hypokalemia Status: Acute (5) SCLC (small cell lung carcinoma) Status: Chronic (6) Thrombocytopenia Status: Chronic (7) Anemia Status: Chronic (8) Nicotine abuse Status: Chronic History of Present Illness Date of Admission: 03/12/19 Chief Complaint: SOB The patient is a 53 year old M with pmhx of SCLC stage IV patient of Dr Muñoz, about 2 weeks prior on immunotherapy and chemotherapy, ongoing nicotine abuse, hypokalemia, who presents to the ER with increased SOB. He has been feeling unweel for the past week. Initially he started having swelling and erythema of the right upper extremity. He later developed pus head in his right axilla. He began to feel gradually worse with increased lethargy, generalized malaise. He began to have swelling in his right hand. The area in the axilla opened up on its own and drained purulent fluid. He came to the emergency room and was placed on amoxicillin and Bactrim. He had no improvement and began to feel more short of breath and came back to the emergency room today. In the ER he appears septic with CBC showing leukocytosis, blasts, increased neutrophils, heart rate >90, lactic acidosis, and CTA from yesterday showing pneumonia. He left the ER AMA yesterday. He is also anemic with low platelets and very low potassium. He feels is arm erythema overall is improved. He denies fever/chills. He is admitted for pneumonia and cellulitis. Past Medical History Past Medical History (Chronic Problems): Chronic Problems SCLC (small cell lung carcinoma) (Chronic) Thrombocytopenia (Chronic) Anemia (Chronic) Nicotine abuse (Chronic) Allergies No Known Allergies Allergy (Verified 02/08/19 23:14) Home Medications: Ambulatory Orders Medication Instructions Recorded Amoxicillin Trihydrate 1 tab PO BID 02/08/19 Furosemide [Lasix] 20 mg PO DAILY 02/08/19 Lorazepam [Ativan] 0.5 mg PO TID PRN PRN 02/08/19 Multivitamin [Multivitamins] 02/08/19 Oxycodone HCl 1 - 2 tab PO Q6H PRN PRN 02/08/19 Potassium Chloride 20 meq PO DAILY 02/08/19 Smz/Tmp Ds [Bactrim Ds] 1 tab PO BID #14 tab 02/09/19 Surgical History: - - right knee arthroscopy Psychiatric History: No pertinent psych hx Lives: Alone Smoking Status: Current every day smoker Tobacco Use: Cigarettes Alcohol: None Drugs: Marijuana - rare - *Family History Maternal History Items: Cancer - squamous cell carcinoma Paternal History Items: Cancer - bladder cancer Review of Systems Constitutional: Reports: Malaise, Weakness, Fatigue. Denies: Chills, Fever HEENT: Denies: Head Aches, Sinus Congestion, Sinus Drainage Cardiovascular: Reports: Edema. Denies: Chest Pain, Chest Pressure, Chest Tightness, Heaviness, Light Headedness, Palpitations, Paroxysmal Noc. Dyspnea, Syncope Respiratory: Reports: Shortness of Breath, Shortness of breath upon exertion. Denies: Cough, Shortness of breath at rest, Sputum production Gastrointestinal: Denies: Abdominal Pain, Nausea, Vomiting Genitourinary: Denies: Dysuria, Hesitancy, Incontinence, Urgency Musculoskeletal: Denies: Joint Pain, Joint Tenderness Skin: Reports: Lesions - right axillae, Rash. Denies: Wounds Neurological: Denies: Numbness, Tingling, Focal weakness Psychiatric: Denies: Anxiety, Depression, Homicidal Ideations, Suicidal Ideations Hematologic/ Lymphatic: Denies: Easy Bruising, Easy Bleeding VTE Information - Inpt Only VTE Present on Admission: No VTE Mechan Device Prophylaxis: SCD's VTE Pharm Prophylaxis ordered?: No Reason prophylaxis not ordered:: Medical Contraindication Patient Problems: Active and Suspected Problems Pneumonia (Acute) Cellulitis (Acute) Sepsis (Acute) Hypokalemia (Acute) - Physical Exam General: Alert, Oriented x3, Cooperative HEENT: Atraumatic, PERRLA, EOMI, Normocephalic Neck: Supple, No JVD, Negative Carotid Bruits Lungs: Clear to auscultation, Diminished Cardiovascular: Regular rate, No murmurs Abdomen: Bowel Sounds Present, Soft, Non Tender Extremities: No edema, Capillary Refill Less than 3 Seconds, - - right hand mildly swollen, mild erythema proximal arm, right axillae wound open, non draining at this time, some surrounding erythema, no lymphangitis appreciated. Skin: Rash Present - right upper extremity mild warmth and erythema receding away from demarcations. Musculoskeletal: No Tenderness to Palpation of Joints or Extremities Neurological: Cranial nerves II-XII grossly intact Psych/Mental Status: Agitated, Alert and oriented to time, place, person, mood and affect Vital Signs Temp Pulse Resp BP Pulse Ox 97 F L 91 20 H 168/101 H 93 02/09/19 12:29 02/09/19 12:29 02/09/19 12:29 02/09/19 12:29 02/09/19 14:04 Oxygen Flow Rate (L/min) 3 Oxygen Delivery Method Nasal Cannula Weight: 212 lb 11.937 oz Body Mass Index (BMI) 30.5 Intake and Output for Last 24 Hours 02/07/19 02/08/19 02/09/19 23:59 23:59 23:59 Intake Total 2135.83 / 2135.83 Balance 2135.83 / 2135.83 Laboratory Tests Past 24 Hrs 02/09/19 02/09/19 02/09/19 10:33 10:33 10:33 WBC FASHION SUPERVISOR Corrected WBC 17.9 H RBC 2.67 L Hgb 8.0 L Hct 25.3 L MCV 94.8 H MCH 30.0 MCHC 31.6 L RDW Std Deviation 52.6 H RDW Coeff of Ismael 15.9 H Plt Count 45 L* MPV 11.0 Neut % (Auto) Not Reportable Absolute Neuts (auto) 12.7 H Absolute Lymphs (auto) 3.04 Total Counted 100 Neutrophils % (Manual) 42 L Band Neutrophils % 29 H Lymphocytes % (Manual) 17 L Monocytes % (Manual) 2 Metamyelocytes % 4 H Myelocytes % 1 H Promyelocytes % 3 H Blast Cells % 1 H* Other Cells % 1 Nucleated RBC % FASHION SUPERVISOR Nucleated RBCs/100 WBC 18 H Diff Path Review May foll Platelet Estimate MOD DEC Anisocytosis 1+ Spherocytes RARE H Sodium 140 Potassium 2.6 L* Chloride 95 L Carbon Dioxide 40.0 H Anion Gap 5 BUN 22 H Creatinine 0.78 Estim Creat Clear Calc 115.69 Est GFR (MDRD) Af Amer 135 Est GFR (MDRD) Non-Af 112 BUN/Creatinine Ratio 28.3 H Glucose 179 H Lactic Acid 4.3 H* Calcium 7.3 L Troponin I < 0.015 Assessment/Plan All Active Problems Pneumonia (Acute) Cellulitis (Acute) Sepsis (Acute) Hypokalemia (Acute) 1. Acute sepsis 2/2 community acquired pna, right upper extremity with cellulitis and axillary lesion - in the setting of immunocompromised patient (SCLC, chemo/immunotherapy) continue unasyn, azithromycin, cellulitis was improving on bactrim/ampicillin. Culture wound. Culture sputum/blood. + lactate, leukcytosis, pulse>90, CBC with increased neuts and blasts. Check urine antigens. Provide aerosols, mucinex, wound care. He was not hypoxic in the ER, he is stable on 2 lpm o2. He does have increased CO2 on BMP at 40. If breathing worsens consider ABG and bipap. 2. Anemia / Thrombocytopenia - likely effect of chemo/immunotherapy. Trend. Avoid heparin products if possible. 4. Hypokalemia - chronically - replete K, needs new home Rx. 5. SCLC st IV - CT abdomen showed liver lesions. TRINH mass. Nodular densities RLL. Care per Dr. Muñoz. He says he has been doing well with chemo/immunotherapy 6. Nicotine abuse, occsional marijuana abuse - he is down to about 3-4 cigarettes per day, occasionally uses marijuana. Does not want patch. 7. HTN in ER - trend, no hx. Start therapy if appropriate after acute phase. DVT ppx: SCDs, thrombocytopenia, he is hypercoagulable so can consider lovenox. This patient was seen by Gus Jain PA-C under the supervision of Doctor Joaquin. <Destin Nuñez - Last Filed: 02/09/19 15:40> History of Present Illness The patient is a 53 year old M [] Past Medical History Allergies No Known Allergies Allergy (Verified 02/08/19 23:14) - Physical Exam Vital Signs Temp Pulse Resp BP Pulse Ox 97 F L 106 H 20 H 168/101 H 93 02/09/19 12:29 02/09/19 14:17 02/09/19 12:29 02/09/19 12:29 02/09/19 14:04 Oxygen Flow Rate (L/min) 3 Oxygen Delivery Method Nasal Cannula Weight: 212 lb 11.937 oz Body Mass Index (BMI) 30.5 Intake and Output for Last 24 Hours 02/07/19 02/08/19 02/09/19 23:59 23:59 23:59 Intake Total 2235.83 / 2235.83 Balance 2235.83 / 2235.83 Laboratory Tests Past 24 Hrs 02/09/19 02/09/19 02/09/19 10:33 10:33 10:33 WBC FASHION SUPERVISOR Corrected WBC 17.9 H RBC 2.67 L Hgb 8.0 L Hct 25.3 L MCV 94.8 H MCH 30.0 MCHC 31.6 L RDW Std Deviation 52.6 H RDW Coeff of Ismael 15.9 H Plt Count 45 L* MPV 11.0 Neut % (Auto) Not Reportable Absolute Neuts (auto) 12.7 H Absolute Lymphs (auto) 3.04 Total Counted 100 Neutrophils % (Manual) 42 L Band Neutrophils % 29 H Lymphocytes % (Manual) 17 L Monocytes % (Manual) 2 Metamyelocytes % 4 H Myelocytes % 1 H Promyelocytes % 3 H Blast Cells % 1 H* Other Cells % 1 Nucleated RBC % FASHION SUPERVISOR Nucleated RBCs/100 WBC 18 H Diff Path Review May foll Platelet Estimate MOD DEC Anisocytosis 1+ Spherocytes RARE H Specimen Type Sample Site pH Bicarbonate Actual POC Total CO2 Base Excess O2 Saturation ABG pCO2 ABG pO2 Ayaan Test O2 Delivery Device Liter Flow Blood Gas Notified Whom Blood Gas Notified Time Sodium 140 Potassium 2.6 L* Chloride 95 L Carbon Dioxide 40.0 H Anion Gap 5 BUN 22 H Creatinine 0.78 Estim Creat Clear Calc 115.69 Est GFR (MDRD) Af Amer 135 Est GFR (MDRD) Non-Af 112 BUN/Creatinine Ratio 28.3 H Glucose 179 H Lactic Acid 4.3 H* Calcium 7.3 L Troponin I < 0.015 Urine Color Urine Clarity Urine pH Ur Specific [place] Urine Protein Urine Glucose (UA) Urine Ketones Urine Occult Blood Urine Nitrite Urine Bilirubin Urine Urobilinogen Ur Leukocyte Esterase Urine RBC Urine WBC Ur Squamous Epith Cells Urine Bacteria Urine Mucus S.aureus Protein A PCR MRSA (PCR) 02/09/19 02/09/19 02/09/19 14:05 15:00 15:15 WBC Corrected WBC RBC Hgb Hct MCV MCH MCHC RDW Std Deviation RDW Coeff of Ismael Plt Count MPV Neut % (Auto) Absolute Neuts (auto) Absolute Lymphs (auto) Total Counted Neutrophils % (Manual) Band Neutrophils % Lymphocytes % (Manual) Monocytes % (Manual) Metamyelocytes % Myelocytes % Promyelocytes % Blast Cells % Other Cells % Nucleated RBC % Nucleated RBCs/100 WBC Diff Path Review Platelet Estimate Anisocytosis Spherocytes Specimen Type ART Sample Site L Radial pH 7.49 H Bicarbonate Actual 39.8 H POC Total CO2 41 Base Excess 16 H O2 Saturation 96 ABG pCO2 52.4 H ABG pO2 75 Ayaan Test POS O2 Delivery Device Nasal Can Liter Flow 3.0 Blood Gas Notified Whom [facility] Blood Gas Notified Time 1403 Sodium Potassium Chloride Carbon Dioxide Anion Gap BUN Creatinine Estim Creat Clear Calc Est GFR (MDRD) Af Amer Est GFR (MDRD) Non-Af BUN/Creatinine Ratio Glucose Lactic Acid Pending Calcium Troponin I Urine Color Pending Urine Clarity Pending Urine pH Pending Ur Specific [place] Pending Urine Protein Pending Urine Glucose (UA) Pending Urine Ketones Pending Urine Occult Blood Pending Urine Nitrite Pending Urine Bilirubin Pending Urine Urobilinogen Pending Ur Leukocyte Esterase Pending Urine RBC Pending Urine WBC Pending Ur Squamous Epith Cells Pending Urine Bacteria Pending Urine Mucus Pending S.aureus Protein A PCR MRSA (PCR) 02/09/19 15:15 WBC Corrected WBC RBC Hgb Hct MCV MCH MCHC RDW Std Deviation RDW Coeff of Ismael Plt Count MPV Neut % (Auto) Absolute Neuts (auto) Absolute Lymphs (auto) Total Counted Neutrophils % (Manual) Band Neutrophils % Lymphocytes % (Manual) Monocytes % (Manual) Metamyelocytes % Myelocytes % Promyelocytes % Blast Cells % Other Cells % Nucleated RBC % Nucleated RBCs/100 WBC Diff Path Review Platelet Estimate Anisocytosis Spherocytes Specimen Type Sample Site pH Bicarbonate Actual POC Total CO2 Base Excess O2 Saturation ABG pCO2 ABG pO2 Ayaan Test O2 Delivery Device Liter Flow Blood Gas Notified Whom Blood Gas Notified Time Sodium Potassium Chloride Carbon Dioxide Anion Gap BUN Creatinine Estim Creat Clear Calc Est GFR (MDRD) Af Amer Est GFR (MDRD) Non-Af BUN/Creatinine Ratio Glucose Lactic Acid Calcium Troponin I Urine Color Urine Clarity Urine pH Ur Specific [place] Urine Protein Urine Glucose (UA) Urine Ketones Urine Occult Blood Urine Nitrite Urine Bilirubin Urine Urobilinogen Ur Leukocyte Esterase Urine RBC Urine WBC Ur Squamous Epith Cells Urine Bacteria Urine Mucus S.aureus Protein A PCR Pending MRSA (PCR) Pending Code Visit Addendum: Dr. Nuñez I personally examined the patient and reviewed the chart. I agree with the above. 22-year-old male who was recently diagnosed with stage IV small cell lung cancer, presents initially at 3 in the morning with fevers chills and just not feeling well. He had an elevated white count at that time as well as an elevated lactic acid however he refused to stay and signed out AMA. He returns later in the morning because of just not feeling well. And his white count is a little bit higher and his lactic acid was now 4.3. He was started on IV fluids as well as broad-spectrum antibiotics for the possibility of pneumonia based on a CT scan of his chest as well as an abscess in his right axilla. We will continue with Zosyn, Vancomycin, azithromycin for possible pneumonia. A MRSA screen is pending and if negative can discontinue vancomycin. Inpatient E&M: 62169 Init Hosp L3
[2019-02-09 14:43] LABS: Reflex Lactate? Y
--- NOTE | 2019-02-09 14:49 | NURSING ---
wound photo: right axilla
--- NOTE | 2019-02-09 15:14 | PCM.RX.CS ---
Consult Pharmacy has been consulted to manage selected antiobiotic: Vancomycin Type of Consult: New start Suspected Infection: Sepsis Prior Doses of Antibiotics Received/Current Regimen: VANCOMYCIN 2000MG IN ED 02/09/19 @0248 (FROM PRIOR ER ADMISSION) Labs: Sodium 140 mmol/L (136-145) 02/09/19 10:33 Potassium 2.6 mmol/L (3.5-5.1) L* 02/09/19 10:33 Chloride 95 mmol/L (98-107) L 02/09/19 10:33 Carbon Dioxide 40.0 mmol/L (21.0-32.0) H 02/09/19 10:33 Anion Gap 5 (5-15) 02/09/19 10:33 BUN 22 mg/dL (7-18) H 02/09/19 10:33 Creatinine 0.78 mg/dL (0.70-1.30) 02/09/19 10:33 Est GFR (MDRD) Af Amer 135 mL/min (>60) 02/09/19 10:33 Est GFR (MDRD) Non-Af 112 mL/min (>60) 02/09/19 10:33 BUN/Creatinine Ratio 28.3 RATIO (10-20) H 02/09/19 10:33 Glucose 179 mg/dL (74-106) H 02/09/19 10:33 Weight used for dosin kg Estimated Creatinine Clearance: 116 ML/MIN Goal Trough: 15-20 mcg/mL Pharmacy Plan for Drug Dosing: Pharmacy to dose vancomycin per consult to target a trough of 15-20. Per H/P, the patient had presented to the ED late last night, but left AMA early this morning. Per ED documentation from this visit, the patient received vancomycin 2000mg IV x1 02/09/19 @0248. Per dosing protocol, the patient qualifies for 1250mg IV Q8h. Since the patient's initial vancomycin dose was over 12hrs prior to scheduled dosing, will plan on not counting this initial dose when assessing trough. Will assess the trough based on the new scheduled vancomycin on this admit. PLAN/RECOMMENDATIONS 1. Vancomycin 1250mg IV Q8h to start 02/09/19 @1600 2. Trough scheduled 02/10/19 @2330 3. Pharmacy Service will continue to monitor and adjust dosing as required.
[2019-02-09 15:29] LABS: Bacteria 0 SEEN /hpf (None Seen)
[2019-02-09 15:35] LABS: Color, Urine Yellow (Yellow); Glucose, Dipstick 100 mg/dl (Normal); Ketone-Dipstick Negative (Negative); Leukocyte Esterase-Dipstick Negative /ul (Negative); Nitrite-Dipstick Negative (Negative); Occult Blood-Urine 10 /ul (Negative); Protein-Dipstick 30 mg/dl (Negative); Urine Bilirubin Dipstick Negative (Negative); Urine Clarity Clear (Clear); Urine Urobilinogen Normal (Normal)
[2019-02-09 15:52] LABS: Lactic Acid 3.3 mmol/L (0.4-2.0)
[2019-02-09 15:54] LABS: Mucous, Urine 1+ /hpf (<or=2+); Red Blood Cells-Urine 0-5 SEEN /hpf (0-5); Squamous Epithelial Cells - UA 0-5 SEEN /hpf (0-5); White Blood Cells 0-5 SEEN /hpf (0-5)
[2019-02-09] MEDS: Acetaminophen 325 MG Tablet 650 MG PO (16:11)
[2019-02-09 16:39] LABS: Probe Check PASS; Staph aureus DNA By PCR POSITIVE (Negative)
[2019-02-09] MEDS: Albuterol 2.5 MG/3 ML VIAL.NEB. INHALATION (16:40)
[2019-02-09 16:42] LABS: M R Staph aureus DNA By PCR POSITIVE (Negative)
[2019-02-09] MEDS: oxyCODONE 5 MG Tablet PO (18:03)
[2019-02-09] MEDS: LORazepam 0.5 MG Tablet PO ×2 (18:03→23:55)
[2019-02-10] MEDS: oxyCODONE 5 MG Tablet PO ×2 (02:07→10:29)
[2019-02-10 03:00] VITALS: PULSE 89
[2019-02-10 04:00] VITALS: BP 160/95; PULSE 89; RESP 16; TEMP 36.4; O2SAT 94
[2019-02-10 06:40] LABS: Hematocrit 24.3 % (40-54); Hemoglobin 7.7 g/dL (13.0-16.5); Mean Corp Hgb Conc 31.7 g/dL (32-36); Mean Corpuscular Hgb 30.1 pg (27.0-32.0); Mean Corpuscular Volume 94.9 fL (80-94); Mean Platelet Vol. 12.4 fl (6.2-12.0); POSITIVE COUNT YES; POSITIVE MORPHOLOGY YES; Platelet Count 40 K/mm3 (150-450); RBC Distribution Width CV 15.8 % (11.6-14.6); RBC Distribution Width SD 52.5 fl (35.1-43.9); Red Blood Count 2.56 M/mm3 (4.6-6.2)
[2019-02-10] MEDS: LORazepam 0.5 MG Tablet PO (06:46)
--- NOTE | 2019-02-10 06:48 | NURSING ---
Patients nicotine patch fell off after getting slightly agitated this morning
[2019-02-10 07:00] VITALS: PULSE 87
[2019-02-10 07:04] LABS: Anion Gap 8 (5-15); BUN 19 mg/dL (7-18); BUN/Creat Ratio 37.5 RATIO (10-20); Calcium,Total 7.1 mg/dL (8.5-10.1); Chloride 96 mmol/L (98-107); Creatinine, Serum 0.51 mg/dL (0.70-1.30); EST Glomerular Filtration Rate 183 mL/min (>60); Est Glom Filt Rate - Afr Amer 221 mL/min (>60); Estimated Creatinine Clearance 176.93 ml/min; Glucose 105 mg/dL (74-106); Magnesium 1.6 mg/dL (1.6-2.6); Sodium Level 141 mmol/L (136-145)
[2019-02-10 07:10] LABS: Phosphorus 2.2 mg/dL (2.5-4.9)
[2019-02-10 07:23] LABS: Differential Indicated MANUAL DIFF
[2019-02-10 07:32] LABS: Neutrophil-Band 14 % (0-5); Neutrophil-Segmented 57 % (47-70); Total Cells Counted 100 (MANUAL DIFF)
[2019-02-10 07:33] LABS: Anisocytosis 1+; Hypochromasia 1+; Lymphocyte 21 % (19-41); Metamyelocyte 8 % (0-1); Nucleated Red Bld Cells,Manual 12 % (0-5); Platelet Estimate MKD DEC (ADEQ)
[2019-02-10 07:38] LABS: Corrected WBC 17.2 K/mm3 (4.4-11.0)
[2019-02-10 07:39] LABS: Absolute Neutrophil Count 12.2 X10^3/uL (2.0-7.7)
[2019-02-10 07:53] VITALS: O2SAT 94
--- NOTE | 2019-02-10 08:53 | PCM.PN.HOSP ---
Patient Problems: Active and Suspected Problems Pneumonia (Acute) Cellulitis (Acute) Sepsis (Acute) Hypokalemia (Acute) Subjective: Feels better today, and wants to go home. No events overnight. Vitals/I&O's: Vital Signs Temp Pulse Resp BP Pulse Ox 97.6 F L 89 16 160/95 H 94 02/10/19 04:00 02/10/19 04:00 02/10/19 04:00 02/10/19 04:00 02/10/19 07:53 Oxygen Flow Rate (L/min) 2 Oxygen Delivery Method Nasal Cannula Weight: 212 lb 11.937 oz Body Mass Index (BMI) 30.5 Intake and Output for Last 24 Hours 02/08/19 02/09/19 02/10/19 23:59 23:59 23:59 Intake Total 3730.83 / 3730.83 325 / 325 Balance 3730.83 / 3730.83 325 / 325 General: Alert, Oriented x3, Cooperative, No apparent distress HEENT: Atraumatic, PERRLA, EOMI, Normocephalic Oral: Moist Mucosa Neck: Supple, No JVD Lungs: Clear to auscultation, Normal air movement, No rhonchi, No wheeze, No rales Cardiovascular: Regular rate, Regular Rhythm, Normal S1, Normal S2, No murmurs Abdomen: Soft, Non Tender, Non-Distended, No Hepato-splenomegaly Extremities: No edema, Capillary Refill Less than 3 Seconds Skin: - - Abscess in his right axilla with minimal drainage but it is open. He has mild right arm swelling but no significant erythema Neurological: Neuro grossly intact, Sensory exam intact to light touch and pain Psych/Mental Status: Normal Affect, Appropriate Microbiology Past 72 Hours 02/09/19 15:15 Urine, Random Streptococcus pneumoniae Antigen (M - Final 02/09/19 15:15 Urine, Random Legionella Antigen - Final Laboratory Results 02/09/19 10:33: WBC S[employer]KE AND [employer] SPECIALIST, Corrected WBC 17.9 H, RBC 2.67 L, Hgb 8.0 L, Hct 25.3 L, MCV 94.8 H, MCH 30.0, MCHC 31.6 L, RDW Std Deviation 52.6 H, RDW Coeff of Ismael 15.9 H, Plt Count 45 L*, MPV 11.0, Neut % (Auto) Not Reportable, Absolute Neuts (auto) 12.7 H, Absolute Lymphs (auto) 3.04, Total Counted 100, Neutrophils % (Manual) 42 L, Band Neutrophils % 29 H, Lymphocytes % (Manual) 17 L, Monocytes % (Manual) 2, Metamyelocytes % 4 H, Myelocytes % 1 H, Promyelocytes % 3 H, Blast Cells % 1 H*, Other Cells % 1, Nucleated RBC % S[employer]AME SPECIALIST, Nucleated RBCs/100 WBC 18 H, Diff Path Review May foll, Platelet Estimate MOD DEC, Anisocytosis 1+, Spherocytes RARE H 02/09/19 10:33: Sodium 140, Potassium 2.6 L*, Chloride 95 L, Carbon Dioxide 40.0 H, Anion Gap 5, BUN 22 H, Creatinine 0.78, Estim Creat Clear Calc 115.69, Est GFR (MDRD) Af Amer 135, Est GFR (MDRD) Non-Af 112, BUN/Creatinine Ratio 28.3 H, Glucose 179 H, Calcium 7.3 L, Troponin I < 0.015 02/09/19 10:33: Lactic Acid 4.3 H* 02/09/19 14:05: Specimen Type ART, Sample Site L Radial, pH 7.49 H, Bicarbonate Actual 39.8 H, POC Total CO2 41, Base Excess 16 H, O2 Saturation 96, ABG pCO2 52.4 H, ABG pO2 75, Ayaan Test POS, O2 Delivery Device Nasal Can, Liter Flow 3.0, Blood Gas Notified Whom [facility] , Blood Gas Notified Time 1403 02/09/19 15:00: Lactic Acid 3.3 H 02/09/19 15:15: Urine Color Yellow, Urine Clarity Clear, Urine pH 6.0, Ur Specific [place] 1.020, Urine Protein 30 H, Urine Glucose (UA) 100 H, Urine Ketones Negative, Urine Occult Blood 10 H, Urine Nitrite Negative, Urine Bilirubin Negative, Urine Urobilinogen Normal, Ur Leukocyte Esterase Negative, Urine RBC 0-5 SEEN, Urine WBC 0-5 SEEN, Ur Squamous Epith Cells 0-5 SEEN, Urine Bacteria 0 SEEN, Urine Mucus 1+ 02/09/19 15:15: S.aureus Protein A PCR POSITIVE H, MRSA (PCR) POSITIVE H 02/10/19 05:45: WBC S[employer] SPECIALIST, Corrected WBC 17.2 H, RBC 2.56 L, Hgb 7.7 L, Hct 24.3 L, MCV 94.9 H, MCH 30.1, MCHC 31.7 L, RDW Std Deviation 52.5 H, RDW Coeff of Ismael 15.8 H, Plt Count 40 L*, MPV 12.4 H, Neut % (Auto) Not Reportable, Absolute Neuts (auto) 12.2 H, Absolute Lymphs (auto) 3.60, Total Counted 100, Neutrophils % (Manual) 57, Band Neutrophils % 14 H, Lymphocytes % (Manual) 21, Metamyelocytes % 8 H, Nucleated RBCs/100 WBC 12 H, Diff Path Review August, Platelet Estimate MKD DEC, Hypochromasia 1+, Anisocytosis 1+ 02/10/19 05:45: Sodium 141, Potassium 3.0 L, Chloride 96 L, Carbon Dioxide 37.0 H, Anion Gap 8, BUN 19 H, Creatinine 0.51 L, Estim Creat Clear Calc 176.93, Est GFR (MDRD) Af Amer 221, Est GFR (MDRD) Non-Af 183, BUN/Creatinine Ratio 37.5 H, Glucose 105, Calcium 7.1 L, Magnesium 1.6 02/10/19 05:45: Phosphorus 2.2 L Current Medications Acetaminophen (Tylenol) 650 mg PO Q6H PRN PRN PRN Reason: .FEVER/PAIN Last Admin: 02/09/19 16:11 Dose: 650 mg Documented by: Albuterol Sulfate (Ventolin Aerosols) 2.5 mg INHALATION Q4H PRN PRN PRN Reason: SOB &/OR WHEEZING Last Admin: 02/09/19 16:40 Dose: 2.5 mg Documented by: Enoxaparin Sodium (Lovenox) 40 mg SC DAILY@1000 LOLY Furosemide (Lasix) 20 mg PO DAILY LOLY Guaifenesin (Robitussin Dm) 10 ml PO Q6H PRN PRN PRN Reason: COUGH Azithromycin 500 mg/ Dextrose 255 mls @ 250 mls/hr IV Q24 LOLY Piperacillin Sod/Tazobactam (Sod 3.375 gm/ Sodium Chloride) 50 mls @ 12.5 mls/hr IV Q8 LOLY Last Admin: 02/10/19 06:00 Dose: 12.5 mls/hr Documented by: Vancomycin IV Pharmacy to Dose (1 ea/ Sodium Chloride) 500 mls @ 250 mls/hr IV PRN PRN; Protocol PRN Reason: Rx to Dose Vancomycin HCl 1,250 mg/ (Sodium Chloride) 275 mls @ 167 mls/hr IV Q8H [facility] [place] Last Infusion: 02/10/19 04:14 Dose: Infused Documented by: Potassium Phosphate 21 mm/ (Sodium Chloride) 257 mls @ 84 mls/hr IV X1 ONE Stop: 02/10/19 10:31 Last Admin: 02/10/19 08:12 Dose: 84 mls/hr Documented by: Magnesium Sulfate 2 gm/ Sodium (Chloride) 104 mls @ 52 mls/hr IV X1 ONE Stop: 02/10/19 09:28 Last Admin: 02/10/19 08:11 Dose: 52 mls/hr Documented by: Lorazepam (Ativan) 0.5 mg PO TID PRN PRN PRN Reason: ANXIETY Last Admin: 02/10/19 06:46 Dose: 0.5 mg Documented by: Nicotine (Nicoderm Cq (Pbkc)) 14 mg TRANSDERM. DAILY [facility] [place] Last Admin: 02/09/19 18:03 Dose: 14 mg Documented by: Oxycodone HCl (Oxyir) 5 - 10 mg PO Q6H PRN PRN PRN Reason: Pain Score 6-10/10 Last Admin: 02/10/19 02:07 Dose: 10 mg Documented by: STROKE Vital Signs/Narrative: Vital Signs Pulse Ox 02/10/19 07:53 94 Medical Necessity - Tobacco Use Smoking Status: Current every day smoker Tobacco Use: Cigarettes Assessment/Plan All Active Problems Pneumonia (Acute) Cellulitis (Acute) Sepsis (Acute) Hypokalemia (Acute) 1. Sepsis secondary to community-acquired pneumonia and right axillary abscess -He is on Vanco, Zosyn, azithromycin -He is discussing about signing out AMA today, and I talked to him extensively about the risks of going home and the fact that he still on oxygen. He understands the risks of going home and he states that if he needs to he can always come back. He feels like he would do better at home in his own bed. At this time he is competent to make the decision to leave AGAINST MEDICAL ADVICE. If he chooses to sign the paperwork he does have Augmentin at home and I we will provide him with doxycycline to treat both the pneumonia as well as possible MRSA. -He received significant IV fluids, and does have Lasix at home, lactic acid trended downwards 2. Stage IV small cell lung cancer/anemia and thrombocytopenia -Currently receiving chemotherapy for his lung cancer, his last 2 weeks ago -His thrombocytopenia and anemia are likely secondary to infection -If he does leave AMA would recommend that he at least have a CBC done as an outpatient early next week -He follows up with his oncologist on Tuesday 3. Hypokalemia/hypophosphatemia/hypomagnesemia -Was able to convince him to stay to replace his potassium and his phosphorus as well as his magnesium DVT: SCDs Code Visit Inpatient E&M: 33898 Subs Hosp L2
[2019-02-10] MEDS: Furosemide 20 MG Tablet PO (09:27)
[2019-02-10 10:15] VITALS: BP 165/97; PULSE 93; RESP 18; TEMP 36.8; O2SAT 95
--- NOTE | 2019-02-10 12:35 | NURSING ---
Pt left AMA at 1230. Pt had extensive education this morning from this RN and from the Physician on the necessary treatment plan needed for him to treat his pneumonia and cellulitis. Pt is very anxious at times and really dislikes being in the hospital. Pt was educated overnight on importance of him staying in the hospital for appropriate treatment he needs. After long talk with MD and this RN today, pt decided he would stay until we completed his morning doses of IV antibiotics and after we give him his replacement IV electrolytes the MD ordered. This RN even had discussion with patient care/treatment with family and friends and the bedside that express their desire for him to stay. This RN explained to them that he is able to make his own decisions and that we cannot hold him here is he wants to leave. The patient was given hand written antibiotic prescription for doxycylcin and educated by the physician to continue to take the Augmentin he has at home. After the completion of these meds, the patients IVs were removed, AMA forms signed and the patient left on his own power with a friend to take him home. This RN encouraged him to come back to the ED if he has any problem.
[2019-02-12 12:04] LABS: Pathologist Review Reviewed
[2019-02-12 12:06] LABS: Pathologist Review Reviewed
--- NOTE | 2019-02-12 14:28 | CASEMGMT ---
Addendum entered by Omar Allen 02/12/19 14:32: Attempted call to pt's phone. No answer. Original Note: YESENIA CARTER DC PHONE CALL DC DATE: 02/09/19 DC Disposition: Left AMA Diagnosis on Discharge: pneumonia, cellulitis LACE/STRATA: 12/26
== END 2019-02-10 12:26 | disposition left against medical advice (07) | DRG 720 ==
LOC: ED 10:48 → PCU 12:13
PROVIDERS: Physician Assistant; Admitting Provider Family Medicine; Emergency Provider Emergency Medicine; Family Provider Family Medicine; PCP Family Medicine; Referring Provider Family Medicine; Visit Provider Family Medicine
DX: A41.9 Sepsis, unspecified organism (principal); J18.9 Pneumonia, unspecified organism; L03.113 Cellulitis of right upper limb; L02.411 Cutaneous abscess of right axilla; E87.6 Hypokalemia; C34.90 Malignant neoplasm of unspecified part of unspecified bronchus or lung; E87.2 Acidosis; I10 Essential (primary) hypertension; D64.9 Anemia, unspecified; D69.6 Thrombocytopenia, unspecified; E83.42 Hypomagnesemia; E83.39 Other disorders of phosphorus metabolism; F12.10 Cannabis abuse, uncomplicated; F17.210 Nicotine dependence, cigarettes, uncomplicated; Z79.899 Other long term (current) drug therapy
CPT/HCPCS: 36415; 36600; 71045; 71275; 80048; 80076; 81001; 82803; 83605; 83690; 83735; 84100; 84484; 85025; 85610; 85730; 87040; 87449; 87640; 93005; 94640; 94667; 96365; 96366; 96367; 96375; 97802; 99284; 99285; J7030; J7040; J7050; Q9967; A4216; J0295; J2405

== ENCOUNTER 2019-02-12 15:03 | Emergency (ER) | payer MEDICAID, SELFPAY ==
[2019-02-09 12:10] VITALS: BMI 30.5
[2019-02-12 15:04] VITALS: BP 157/90; PULSE 104; RESP 16; TEMP 36.8; O2SAT 93; BMI 28.0
[2019-02-12 15:10] VITALS: BP 145/85; PULSE 101; RESP 16; O2SAT 98
--- NOTE | 2019-02-12 15:11 | ED.DCSUM_ITS ---
History of Present Illness Chief Complaint: Abn Labs Informant: Patient Onset: Days Context: Gradual Onset Timing: Continuous Current Severity: Mild Maximum Severity: Mild Narrative: Patient presents to the emergency department with abnormal labs. Patient has a history of stage IV small cell lung cancer. He was admitted just 2 days ago with pneumonia. He has been on antibiotics. He did have hypomagnesemia and hypokalemia replaced. The patient signed out AGAINST MEDICAL ADVICE. He followed up with oncology today. His labs were repeated he was found to be pers istently hypomagnesemic and hypokalemic. The patient was sent over for electrolyte replacement. He states that he does not want any further labs done. He states he will not stay in the hospital no matter what. He states aside from his cancer, he has no other symptoms. Prior similar symptoms: Yes Recent Illness/Hospitalization: Yes Past Medical History - Allergies and Home Meds Allergies/Adverse Reactions: Allergies No Known Allergies Allergy (Verified 02/12/19 15:04) Primary Care Physician: Spenser Muñoz DO [STAFF PHYSICIAN] - 1 Day Prior records reviewed: Yes Past Medical History: - - Small cell lung cancer Surgical History: - - right knee arthroscopy Smoking Status: Current every day smoker - Family History Maternal Family History: Reports: Cancer - squamous cell carcinoma Paternal Family History: Reports: Cancer - bladder cancer Review of Systems General: Denies: Chills, Fever, Sweats Eyes: Denies: Visual changes - bilaterally, Diplopia ENT: Denies: Rhinorrhea, Sore throat Cardiovascular: Denies: Chest pain, Palpitations Respiratory: Denies: Dyspnea, Cough, Dyspnea on exertion Gastrointestinal: Denies: Abdominal pain, Nausea, Vomiting, Diarrhea, Melena, Hematochezia Genitourinary: Denies: Dysuria, Hematuria, Frequency Musculoskeletal: Denies: Back pain, Extremity Pain Skin: Denies: Rash, Wounds Neurological: Denies: Headache, Weakness, Numbness Physical Exam Vital Signs/Narrative: Vital Signs Temp Pulse Resp BP Pulse Ox 02/12/19 15:04 98.3 F 104 H 16 157/90 H 93 Inital Vital Signs reviewed: Yes General: Well nourished, Well developed, No Acute Distress Head: Normocephalic, Atraumatic Eyes: Perrl, EOMI ENT: Moist mucous membranes, No rhinorrhea Neck: Supple, Nontender Cardiovascular: Regular rate, Regular rhythm, No murmurs Respiratory: No distress, Chest nontender, Decreased Air Movement Abdomen: Soft, Nontender, Nondistended, Normal bowel sounds Back: Nontender, Normal Inspection Extremities: Nontender, No edema Skin: Normal color, No rash Neurological: Alert, Oriented x3, Cranial nerves II-XII grossly intact, Normal Strength, Normal Sensation Psychological: Normal affect, Normal Mood Diagnostic/Tx/Re-eval - Medical Decision Making The patient presents to the emergency department with electrode abnormalities. He did not want any work-up. He did come with his labs. His potassium is 2.6. His magnesium was 1.4. These were both replaced. At this point, patient wants to leave. He is going to follow-up tomorrow with oncology for repeat blood work. He will be discharged home. Impression 1. Hypokalemia 2. Hypomagnesemia 3. History of stage IV lung cancer ED Disposition - Plan for ED Patient: Instructions: Hypokalemia, Hypomagnesemia Prescriptions: Potassium Chloride [K-Dur] 20 meq PO TID #30 tab Prescription Printed Referrals: Spenser Muñoz DO [STAFF PHYSICIAN] - 1 Day
[2019-02-12] MEDS: Potassium Chloride 10mEq/100mL 10 MEQ/100 ML IV.SOLN. 100 MEQ IV BOLUS ×2 (15:31→16:51)
[2019-02-12] MEDS: 0.9% Normal Saline 1,000 ML 150 ML IV (15:32)
[2019-02-12] MEDS: Magnesium Sulfate 4gm/100mL 4 GM/100 ML IV.SOLN. IV (15:47)
[2019-02-12 15:50] VITALS: BP 145/85; PULSE 106; RESP 20; TEMP 36.8; O2SAT 93
[2019-02-12 17:03] VITALS: BP 138/89; PULSE 106; RESP 24; O2SAT 92
[2019-02-12 19:48] VITALS: BP 130/60; PULSE 96; RESP 18; O2SAT 92
== END 2019-02-12 19:50 | disposition home or self-care (01) ==
LOC: ED 15:45
PROVIDERS: Emergency Provider Emergency Medicine; Family Provider Family Medicine; PCP Family Medicine
DX: E83.42 Hypomagnesemia (principal); E87.6 Hypokalemia; C34.90 Malignant neoplasm of unspecified part of unspecified bronchus or lung; F17.200 Nicotine dependence, unspecified, uncomplicated; Z79.899 Other long term (current) drug therapy
CPT/HCPCS: 96365; 96366; 96367; 99285; J7030; A4216

== ENCOUNTER 2019-03-01 15:54 | Inpatient (IN) | payer MEDICAID, SELFPAY ==
[2019-03-01] VITALS (14 sets, daily range): BP systolic 137–176; BP diastolic 78–101; PULSE 116–141; RESP 14–24; TEMP 36.4–36.6; O2SAT 90–99; BMI 29.9; BMI 25.7
--- NOTE | 2019-03-01 16:07 | RAD_ITS ---
STUDY: X-RAY CHEST REASON FOR EXAM: Male, 53 years old. Shortness of breath TECHNIQUE: Frontal view of the chest COMPARISON: X-ray chest February 09, 2019 FINDINGS: There is a left mid lung zone consolidation. The right lung is clear. There are no pleural effusions. There is no pneumothorax. The heart is normal in size. The visualized osseous structures are within normal limits. RAD/Chest PA and Lateral IMPRESSION: Left midlung zone consolidation, concerning for pneumonia. Electronically Signed: Shahid Vega, at 16:35 EST Tel , Service support ,
--- NOTE | 2019-03-01 16:55 | CT_ITS ---
STUDY: CT BRAIN WITHOUT CONTRAST REASON FOR EXAM: Male, 53 years old. Shortness of breath RADIATION DOSAGE (If Supplied By Facility): DLP = ( 812.98 ) mGycm TECHNIQUE: Transaxial CT imaging of the brain was performed without administration of intravenous contrast material. Individualized dose optimization techniques were used for this CT. COMPARISON: None. FINDINGS: There is no acute bleed or infarct. There are normal white matter tracts. The ventricles are normal in configuration. There is no hydrocephalus. The visualized paranasal sinuses are clear. The mastoid air cells are well aerated. There is no skull fracture. CT/Brain/Head without Contrast IMPRESSION: No acute intracranial abnormality. Electronically Signed: Shahid Vega, at 18:14 EST Tel , Service support ,
[2019-03-01] MEDS: Ipratropium/Albuterol Sulfate 3 ML AMPUL.NEB INHALATION (17:19)
[2019-03-01] MEDS: 0.9% Normal Saline 1,000 ML 1000 ML IV (17:37)
[2019-03-01 17:50] LABS: Hematocrit 22.2 % (40-54); Hemoglobin 6.7 g/dL (13.0-16.5); Mean Corp Hgb Conc 30.2 g/dL (32-36); Mean Corpuscular Volume 99.6 fL (80-94); Mean Platelet Vol. 12.7 fl (6.2-12.0); POSITIVE COUNT YES; POSITIVE MORPHOLOGY YES; RBC Distribution Width SD 63.4 fl (35.1-43.9); Red Blood Count 2.23 M/mm3 (4.6-6.2)
--- NOTE | 2019-03-01 17:52 | ED.VISSUMM ---
- ER Visit Summary Date of Service: 03/01/19 Chief Complaint: Confusion, shortness of breath, and fatigue History of Present Illness: The patient is a 53 M who presents with confusion, shortness of breath, and fatigue that is been getting worse over the past few days. Patient states is gradually gotten worse. Patient states he feels like he cannot catch his breath. Patient states this is worse over his left chest. Patient admits to some pain in his chest and feeling like his heart is racing. Patient states nothing makes his symptoms any better or worse. Patient admits to some shortness of breath but denies any cough. Patient denies any fevers or chills. Physical Examination: Vital signs are stable except for tachycardia of 129. Patient is afebrile. Patient is in no acute distress. Oral mucosa is pink and moist. Neck is supple. Trachea is midline. There is no JVD. Skin is pale. Cranial nerves II through XII are grossly intact. There are no focal motor or sensory deficits noted. Heart was regular and tachycardic. Lungs are diminished on the left. Abdomen is soft. Bowel sounds are normal. There is no tenderness. Test Results: PA and lateral chest x-ray shows a left upper lobe infiltrate. CBC shows a hemoglobin of 6.7 and a platelet count of 21. Basic metabolic profile showed a potassium of 2.1. Lactate was elevated at 2.3. CT scan of the brain was obtained and did not show any acute intracranial abnormality. Emergency Department Course and Treatment: Patient was given IV fluids. Blood cultures were obtained. Patient was started on Levaquin. Patient initially did not want to be admitted to the hospital. Case was discussed with Dr. Muñoz. He agrees with Levaquin. On reevaluation patient was advised of his low hemoglobin and low potassium. Patient is now agreeable to admission to the hospital. Patient was typed and crossed for a unit of packed red blood cells. This was transfused. Patient was given 10 mEq of potassium IV and 40 mEq of potassium orally. Case was discussed with the hospitalist. He will be in to evaluate the patient and admit the patient to the hospital. Patient and family understood and were agreeable with the plan. All questions were answered. Disposition: Admit to hospital Impression: 1. Left upper lobe pneumonia 2. Anemia This note was generated with [employer] software. It may contain incorrect words, spelling, and punctuation that were not noted in review of the chart prior to signing ED Disposition - Plan for ED Patient: Disposition: Acute Care Hospital [facility] Diagnosis: Left upper lobe pneumonia, Pneumonia, Anemia, SCLC (small cell lung carcinoma)
[2019-03-01 18:11] LABS: ALB/GLOB Ratio 0.6 RATIO (0.9-2.4); AST(SGOT) 61 U/L (15-37); Alanine Aminotransfer ALT/SGPT 87 U/L (16-61); Albumin, Serum 2.3 g/dL (3.2-5.0); Alkaline Phosphatase 137 U/L (45-117); Anion Gap 6 (5-15); BUN 26 mg/dL (7-18); BUN/Creat Ratio 48.1 RATIO (10-20); Calcium,Total 7.6 mg/dL (8.5-10.1); Chloride 94 mmol/L (98-107); Creatinine, Serum 0.54 mg/dL (0.70-1.30); EST Glomerular Filtration Rate 170 mL/min (>60); Est Glom Filt Rate - Afr Amer 206 mL/min (>60); Estimated Creatinine Clearance 172.37 ml/min; Globulin 3.7 g/dL (2.2-4.2); Glucose 148 mg/dL (74-106); Potassium 2.1 mmol/L (3.5-5.1); Sodium Level 144 mmol/L (136-145)
--- NOTE | 2019-03-01 18:11 | ED.RN ---
AWARE OF LABS.
[2019-03-01 18:17] LABS: Differential Indicated MANUAL DIFF; Platelet Count 21 K/mm3 (150-450)
[2019-03-01 18:31] LABS: Neutrophil-Band 4 % (0-5); Neutrophil-Segmented 61 % (47-70); Total Cells Counted 100 (MANUAL DIFF)
[2019-03-01 18:32] LABS: Bacteria 0 SEEN /hpf (None Seen); Mucous, Urine 0 SEEN /hpf (<or=2+); White Blood Cells 0 SEEN /hpf (0-5)
[2019-03-01 18:32] LABS: Lymphocyte 30 % (19-41); Metamyelocyte 1 % (0-1); Monocyte 1 % (0-10); Myelocyte 3 (0-0)
[2019-03-01 18:34] LABS: Color, Urine Yellow (Yellow); Glucose, Dipstick Normal (Normal); Ketone-Dipstick 15 mg/dl (Negative); Leukocyte Esterase-Dipstick Negative /ul (Negative); Nitrite-Dipstick Negative (Negative); Occult Blood-Urine 10 /ul (Negative); Protein-Dipstick 30 mg/dl (Negative); Specific Gravity, Urine 1.015 (1.002-1.030); Urine Clarity Sl. Cloudy (Clear); Urine Urobilinogen 4 mg/dl (Normal); Urine pH 6.5 (5.0 - 8.0)
[2019-03-01 18:37] LABS: Nucleated Red Bld Cells,Manual 10 % (0-5)
[2019-03-01 18:38] LABS: Anisocytosis 1+; Platelet Estimate MKD DEC (ADEQ)
[2019-03-01 18:43] LABS: Urine Bilirubin Dipstick 1 mg/dL (Negative)
[2019-03-01 18:45] LABS: Red Blood Cells-Urine 0-5 SEEN /hpf (0-5); Squamous Epithelial Cells - UA 0-5 SEEN /hpf (0-5)
--- NOTE | 2019-03-01 18:55 | ED.RN ---
aware of lactic.
[2019-03-01 18:56] LABS: Lactic Acid 2.3 mmol/L (0.4-2.0)
[2019-03-01] MEDS: levoFLOXacin IV 750 MG/150 ML BAG 100 MG IV (20:02)
--- NOTE | 2019-03-01 20:23 | HP.PCM_ITS ---
Problem List (1) Pneumonia Status: Acute History of Present Illness Date of Admission: 03/01/19 Chief Complaint: fatigue The patient is a 53 year old M with a significant history of tobacco abuse and small cell lung cancer who reported to the emergency department with 1 week history of fatigue. Associated with symptoms is shortness of breath and productive cough of brownish sputum. He also reports occasional hemoptysis. At the emergency department his potassium was found to be severely low. Also his hemoglobin and his platelet was low. Further he had low neutrophils Chest x-ray was remarkable for left midlung zone consolidation Past Medical History Past Medical History (Chronic Problems): Chronic Problems SCLC (small cell lung carcinoma) (Chronic) Thrombocytopenia (Chronic) Anemia (Chronic) Nicotine abuse (Chronic) Allergies No Known Allergies Allergy (Verified 02/12/19 15:04) Home Medications: Ambulatory Orders Medication Instructions Recorded Oxycodone HCl 1 - 2 tab PO Q6H PRN PRN 02/08/19 RX: Lorazepam [Ativan] 0.5 mg PO TID PRN PRN 02/08/19 RX: Potassium Chloride 20 meq PO DAILY 02/08/19 Surgical History: - - right knee arthroscopy Psychiatric History: No pertinent psych hx Smoking Status: Current some day smoker - *Family History Maternal History Items: Cancer - squamous cell carcinoma Paternal History Items: Cancer - bladder cancer VTE Information - Inpt Only VTE Present on Admission: No VTE Mechan Device Prophylaxis: SCD's VTE Pharm Prophylaxis ordered?: No Patient Problems: Active and Suspected Problems Pneumonia (Acute) Left upper lobe pneumonia (Acute) - Physical Exam Vitals/I&O's: Vital Signs Temp Pulse Resp BP Pulse Ox 97.8 F 126 H 19 H 176/91 H 96 03/01/19 19:00 03/01/19 20:13 03/01/19 20:13 03/01/19 20:13 03/01/19 20:13 Oxygen Flow Rate (L/min) 2 Oxygen Delivery Method Nasal Cannula Weight: 97.522 kg Body Mass Index (BMI) 29.9 Intake and Output for Last 24 Hours 02/27/19 02/28/19 03/01/19 23:59 23:59 23:59 Intake Total 1000 / 1000 Balance 1000 / 1000 General: Alert, Oriented x3, Cooperative HEENT: Atraumatic, PERRLA, EOMI, Normocephalic Neck: Supple, No JVD, Negative Carotid Bruits Lungs: Clear to auscultation, Normal air movement, Tachypneic Cardiovascular: No murmurs, Tachycardic Abdomen: Bowel Sounds Present, Soft, Non Tender Extremities: No edema, Capillary Refill Less than 3 Seconds Skin: No rashes, No breakdown Musculoskeletal: No Tenderness to Palpation of Joints or Extremities Neurological: Cranial nerves II-XII grossly intact Psych/Mental Status: Normal Affect, Appropriate Laboratory Results 03/01/19 17:30: WBC DEALERSHIP MANAGER, Corrected WBC 6.2, RBC 2.23 L, Hgb 6.7 L, Hct 22.2 L, MCV 99.6 H, MCH 30.0, MCHC 30.2 L, RDW Std Deviation 63.4 H, RDW Coeff of Ismael 19.0 H, Plt Count 21 L*, MPV 12.7 H, Neut % (Auto) Not Reportable, Absolute Neuts (auto) 4.4, Absolute Lymphs (auto) 2.05, Total Counted 100, Neutrophils % (Manual) 61, Band Neutrophils % 4, Lymphocytes % (Manual) 30, Monocytes % (Manual) 1, Metamyelocytes % 1, Myelocytes % 3 H, Nucleated RBCs/100 WBC 10 H, Diff Path Review August, Platelet Estimate MKD DEC, Anisocytosis 1+ 03/01/19 17:30: Sodium 144, Potassium 2.1 L*, Chloride 94 L, Carbon Dioxide 44.0 H, Anion Gap 6, BUN 26 H, Creatinine 0.54 L, Estim Creat Clear Calc 172.37, Est GFR (MDRD) Af Amer 206, Est GFR (MDRD) Non-Af 170, BUN/Creatinine Ratio 48.1 H, Glucose 148 H, Calcium 7.6 L, Total Bilirubin 1.40 H, AST 61 H, ALT 87 H, Alkaline Phosphatase 137 H, Total Protein 6.0 L, Albumin 2.3 L, Globulin 3.7, Albumin/Globulin Ratio 0.6 L 03/01/19 17:30: Lactic Acid 2.3 H 03/01/19 18:15: Urine Color Yellow, Urine Clarity Sl. Cloudy, Urine pH 6.5, Ur Specific [place] 1.015, Urine Protein 30 H, Urine Glucose (UA) Normal, Urine Ketones 15 H, Urine Occult Blood 10 H, Urine Nitrite Negative, Urine Bilirubin 1 H, Urine Urobilinogen 4 H, Ur Leukocyte Esterase Negative, Urine RBC 0-5 SEEN, Urine WBC 0 SEEN, Ur Squamous Epith Cells 0-5 SEEN, Urine Bacteria 0 SEEN, Urine Mucus 0 SEEN Current Medications Potassium Chloride () 10 meq in 100 mls @ 100 mls/hr IV BOLUS Q1H LOLY Stop: 03/01/19 20:59 Levofloxacin (Levaquin Iv) 750 mg in 150 mls @ 100 mls/hr IV X1 ONE Stop: 03/01/19 21:17 Last Admin: 03/01/19 20:02 Dose: 100 mls/hr Documented by: Assessment/Plan All Active Problems Pneumonia (Acute) Cellulitis (Acute) Sepsis (Acute) Hypokalemia (Acute) Left upper lobe pneumonia (Acute) The patient is a 53 year old M with a significant history of tobacco abuse and small cell lung cancer who reported to the emergency department with 1 week history of fatigue and shortness of breath and found to have radiographic evidence of left mid lung zone consolidation consistent with Community acquired pneumonia and also with pancytopenia. Severe sepsis secondary to community acquired pneumonia Lactic acid: 2.3 on presentation; trended down to 1.8 RR ~maximum of 24 Tachycardia: More than 90 with highest of 141 Blood culture ?2 is pending Chest x-ray:evidence of left mid lung zone consolidation Respiratory Gram stain and culture ordered Antibiotics: Received levaquin at the ED. which was switched to ceftriaxone and azithromycin. Also will give a one-time dose of vancomycin because of history of MRSA. We will do MRSA screen. If MRSA screen is unremarkable consider discontinuing vancomycin. IV hydration: Received normal saline bolus in the emergency department. DuoNeb scheduled. Albuterol as needed Legionella antigen screen and Strep antigen ordered Pancytopenia and low absolute neutrophil count Plan patient with low platelets and low hemoglobin. Patient has a history of thrombocytopenia but this is worse than previous. Both episodes of intermittent mild hemoptysis. If persist consider platelet transfusion. Also patient has chronic anemia but this is worse. 1 units of blood ordered from the emergency department. Check CBC in a.m. Patient sees Dr. Muñoz, oncologist; will consult Dr. Muñoz oncologist. Hypokalemia on presentation his potassium was 2.1. P.o. and IV potassium ordered. Escalate home scheduled potassium. Trend BMP. Check magnesium level Pseudohypocalcemia On presentation his calcium level was 7.6. Albumin was 2.3. Corrected calcium is 9.0 Small cell lung cancer Follows up with Dr. Muñoz. Home oxycodone ordered Anxiety disorder Received Ativan at the emergency department. Home Ativan continued. Tobacco abuse Counseled Nicotine patch ordered Abdominal pain KUB showed gaseous dilatation of the transverse colon. Mylanta ordered DVT prophylaxis SCD Code Visit Inpatient E&M: 98602 Init Hosp L3
[2019-03-01] MEDS: Potassium Chloride 10mEq/100mL 10 MEQ/100 ML IV.SOLN. 100 MEQ IV BOLUS (20:27)
[2019-03-01] MEDS: oxyCODONE 5 MG Tablet PO (20:56)
[2019-03-01] MEDS: LORazepam 0.5 MG Tablet PO (20:56)
[2019-03-01 21:44] LABS: Reflex Lactate? Y
[2019-03-01 22:26] LABS: Lactic Acid 1.8 mmol/L (0.4-2.0)
--- NOTE | 2019-03-01 23:48 | NURSING ---
This RN resuming care of patient at this time.
--- NOTE | 2019-03-01 23:55 | RAD_ITS ---
HISTORY: Generalized abdominal pain. ADDITIONAL HISTORY: None. COMPARISON: CT abdomen 12/29/2018 Technique: Supine abdominal radiographs Number of images including paperwork: 2 FINDINGS: FREE AIR: None detected. BOWEL GAS PATTERN: No significantly dilated loops of small bowel. Somewhat prominent amount of bowel gas is present with gaseous dilatation of the transverse colon measuring up to 10 cm in diameter. CALCIFICATIONS: No definite urinary tract calculi. ORGANS: No evidence of organomegaly. SOFT TISSUES: Unremarkable. BONES: No acute skeletal findings. RAD/Abdomen Single View (Portable) IMPRESSION: Somewhat prominent amount of bowel gas with gaseous dilatation of the transverse colon. at 0026 Reported and signed by: Joyce Sosa MD Electronically Signed: Joyce Sosa MD at 0:26 EST Tel , Service support ,
[2019-03-02] VITALS (13 sets, daily range): BP systolic 137–153; BP diastolic 86–101; PULSE 113–120; RESP 14–20; TEMP 36.6–36.9; O2SAT 92–96; BMI 25.7
--- NOTE | 2019-03-02 00:01 | NURSING ---
Pt visitor states patient has been having trouble swallowing. This RN recommends a bedside swallow eval to visitor. Visitor states he's not doing any more tests. Visitor got water from the sink and gave patient some. Pt coughed after water intake.
[2019-03-02] MEDS: Potassium Chloride 10mEq/100mL 10 MEQ/100 ML IV.SOLN. 100 MEQ IV BOLUS ×7 (00:35→16:56)
[2019-03-02] MEDS: oxyCODONE 5 MG Tablet PO ×2 (01:12→12:06)
[2019-03-02] MEDS: 0.9% Saline Lock 10 ML Syringe IV ×2 (01:43→05:24)
[2019-03-02 01:47] LABS: Corrected WBC 7.6 K/mm3 (4.4-11.0)
[2019-03-02 01:48] LABS: Absolute Lymphocyte Count 2.28 X10^3/uL (0.83-4.51); Absolute Neutrophil Count 4.9 X10^3/uL (2.0-7.7)
--- NOTE | 2019-03-02 06:36 | EKG12_ITS ---
Test Reason : RHYTHM CHANGE Blood Pressure : / mmHG Vent. Rate : 117 BPM Atrial Rate : 117 BPM P-R Int : 144 ms QRS Dur : 092 ms QT Int : 364 ms P-R-T Axes : 045 020 -20 degrees QTc Int : 507 ms Sinus tachycardia Cannot rule out Inferior infarct (cited on or before 08-FEB-2019) Abnormal ECG When compared with ECG of 08-FEB-2019 23:42, Nonspecific T wave abnormality now evident in Anterior leads Confirmed by MERLINE PHILLIP, HERVE ([id number]), research editor SONDRA HANEY ([id number]) on 03/06/2019 3:09:24 PM Referred By: Shay Green Confirmed By:HERVE RICK MD
[2019-03-02 06:46] LABS: Hematocrit 23.8 % (40-54); Hemoglobin 7.4 g/dL (13.0-16.5); Mean Corp Hgb Conc 31.1 g/dL (32-36); Mean Corpuscular Volume 96.4 fL (80-94); POSITIVE COUNT YES; POSITIVE MORPHOLOGY YES; RBC Distribution Width CV 18.5 % (11.6-14.6); Red Blood Count 2.47 M/mm3 (4.6-6.2)
[2019-03-02 06:54] LABS: Differential Indicated MANUAL DIFF
[2019-03-02 07:00] LABS: Anion Gap 9 (5-15); BUN 22 mg/dL (7-18); BUN/Creat Ratio 43.1 RATIO (10-20); Calcium,Total 7.2 mg/dL (8.5-10.1); Chloride 95 mmol/L (98-107); Creatinine, Serum 0.51 mg/dL (0.70-1.30); EST Glomerular Filtration Rate 182 mL/min (>60); Est Glom Filt Rate - Afr Amer 220 mL/min (>60); Estimated Creatinine Clearance 176.93 ml/min; Glucose 145 mg/dL (74-106); Magnesium 1.6 mg/dL (1.6-2.6); Potassium 2.8 mmol/L (3.5-5.1); Sodium Level 143 mmol/L (136-145)
[2019-03-02 07:23] LABS: Blast 1 % (0-0); Lymphocyte 27 % (19-41); Metamyelocyte 3 % (0-1); Monocyte 3 % (0-10); Myelocyte 1 (0-0); Neutrophil-Band 12 % (0-5); Neutrophil-Segmented 53 % (47-70); Nucleated Red Bld Cells,Manual 10 % (0-5); Total Cells Counted 100 (MANUAL DIFF)
[2019-03-02 07:24] LABS: Anisocytosis 2+; Hypochromasia 2+; Microcytosis 1+; Platelet Estimate MKD DEC (ADEQ); Polychromasia 1+
[2019-03-02 07:28] LABS: Platelet Count 16 K/mm3 (150-450)
[2019-03-02 07:29] LABS: Absolute Lymphocyte Count 1.89 X10^3/uL (0.83-4.51); Absolute Neutrophil Count 4.6 X10^3/uL (2.0-7.7)
--- NOTE | 2019-03-02 07:41 | CT_ITS ---
STUDY: CTA CHEST REASON FOR EXAM: Male, 53 years old. Confusion lung cancer RADIATION DOSAGE (If Supplied By Facility): CTDIvol = ( 10.67 ) mGy, DLP = ( 435.78 ) mGycm TECHNIQUE: The examination was performed with the intravenous administration of IV Isovue 370 100. Post-processing of the angiographic images was performed, with multiplanar reformation and 3D reconstruction. Individualized dose optimization techniques were used for this CT. COMPARISON: February 09, 2019 CT angiogram chest on the CT scan abdomen and pelvis December 29, 2018 FINDINGS: There is a severely narrowed appearance of the left pulmonary artery secondary to advanced lymphadenopathy and mass surrounding the left hilum. There is no visualized filling defect otherwise. There is no demonstrated pulmonary embolism. There is slight effacement of the descending thoracic aorta by tumor in the left mediastinum. There is no demonstrated aortic dissection. There is a large pericardial effusion greater in size in prior study. Approximately at the level of the right inferior pulmonary vein the fluid collection measured 1.6 cm now measuring 2.75 cm. There is bulky lymphadenopathy in the mediastinum adjacent to the aortic arch on axial view measuring 8.4 x 3.2 cm. There is mediastinal lymphadenopathy in the left pericarinal region effacing the left side mainstem bronchus with minimal aeration of the proximal and mid bronchial structures especially the left lower lobe. There is near occlusion of the left upper lobe bronchus with apparent postobstructive pneumonitis. There is a large masslike density within the left hilum the borders of which are ill-defined and confluent with lymphadenopathy in the hilum. This roughly measures 6.2 x 6 x 6 cm. Is mentioned above there is a narrowed appearance of the left mainstem bronchus and very narrowed or near occlusive appearance of the bronchial structures on the left. There is postobstructive pneumonitis suggested within the left lingula and nodular densities in the left upper lobe. One is measuring approximately 1.9 x 1.2 cm on today's study, on prior study measuring 1.2 x 1.0 cm. This is partially confluent with the aforementioned masslike density in the left chest. There is a small to moderate left effusion with left lower lobe atelectasis. There is a thickened appearance of the left-sided major fissure and a trace amount of tracking fluid. There is a small focus of right lower lobe consolidation in the superior aspect of the right lower lobe. There are nonspecific bilateral axillary lymph nodes. There are supraclavicular lymph nodes bilaterally measuring up to 0.4 and 1.8 cm to 2.1 cm. There are degenerative changes of thoracic spine. Is an enlarged appearance of the bilateral adrenal glands the left side measuring 2.4 x 3.4 cm the right side measuring 2.4 x 2.4 cm. This is new since prior study December 29, 2018 CT/CTA Chest W/WO Contrast IMPRESSION: Worsening large pericardial effusion. Persistent worsening bulky lymphadenopathy in the left side mediastinum with left hilar lymphadenopathy masslike density encasing and effacing and some parts of securing the left-sided hilar structures. No visualized pulmonary embolism Enlarging left apical nodule. New left pleural effusion lower lobe atelectasis Left upper lobe and left lingular consolidation probable postobstructive pneumonitis. Since prior study December 29, 2018 CT scan abdomen and pelvis there's been interval enlargement and lobulation of the adrenal glands most consistent with metastatic disease. Extensive bulky lymphadenopathy including supraclavicular lymph nodes. Electronically Signed: Danae Baez MD at 12:23 EST Tel , Service support ,
--- NOTE | 2019-03-02 07:45 | PCM.CONS.B ---
Problem List (1) SCLC (small cell lung carcinoma) Status: Chronic (2) Anemia Status: Chronic Qualifiers: Anemia type: unspecified type Qualified Code(s): D64.9 - Anemia, unspecified (3) Thrombocytopenia Status: Acute - Consult Date of Consult: 03/02/[address] Hernandez regarding patient with small cell lung cancer present with acute shortness of breath and chest pain. Final recommendation will be communicated to the medical team and also by electronic medical records. - Reason for Consult History of Present Illness Date of Admission: 03/01/19 Chief Complaint: fatigue; acute shortness of breath and chest pain The patient is a 53 year old M with a significant history of tobacco abuse and small cell lung cancer who reported to the emergency department with 1 week history of fatigue, rest of shortness of breath and chest pain. Associated with symptoms is shortness of breath and nonproductive cough. He also reports occasional hemoptysis. At the emergency department his potassium was found to be severely low. Also has severe anemia and moderate thrombocytopenia. He was lethargic upon arrival, but has no fever. Chest x-ray was remarkable for left midlung zone consolidation & cardiomegaly. This is very similar to his CT scan which show a left hilar mass last month. Oncological history: Patient had 2 cycle chemotherapy; carboplatin/etoposide/ Atezilizumab & last cycle chemotherapy was held because of anemia and thrombocytopenia. (66,001-week ago.) On admission his labs are as follow: Lactic acid: 2.3 on presentation; trended down to 1.8 RR ~maximum of 24 Tachycardia: More than 90 with highest of 141 Blood culture ?2 is pending Respiratory Gram stain and culture ordered Antibiotics: Received levaquin at the ED. which was switched to ceftriaxone and azithromycin. Also will give a one-time dose of vancomycin because of history of MRSA. We will do MRSA screen. If MRSA screen is unremarkable consider discontinuing vancomycin. IV hydration: Received normal saline bolus in the emergency department. DuoNeb scheduled. Albuterol as needed Legionella antigen screen and Strep antigen ordered Prednisone due to severity of his condition. He was placed on IV antibiotic and IV fluid was given and 1 unit of blood was given last night. This morning patient still much better but still have shortness of breath, no cough but occasional hemoptysis. He has no other clinical bleeding with petechiae. Appears to be more alert and orientated this morning. Still have moderate pain in his chest this morning. Past Medical History Past Medical History (Chronic Problems): Chronic Problems SCLC (small cell lung carcinoma) (Chronic) Thrombocytopenia (Chronic) Anemia (Chronic) Nicotine abuse (Chronic) Allergies No Known Allergies Allergy (Verified 02/12/19 15:04) Home Medications: Ambulatory Orders Medication Instructions Recorded Lorazepam [Ativan] 0.5 mg PO TID PRN PRN 02/08/19 Oxycodone HCl 1 - 2 tab PO Q6H PRN PRN 02/08/19 Potassium Chloride 20 meq PO DAILY 02/08/19 Surgical History: - - right knee arthroscopy Psychiatric History: No pertinent psych hx Smoking Status: Current some day smoker - *Family History Maternal History Items: Cancer - squamous cell carcinoma Paternal History Items: Cancer - bladder cancer Patient Problems: Active and Suspected Problems Pneumonia (Acute) Left upper lobe pneumonia (Acute) - Physical Exam Vital Signs Temp Pulse Resp BP Pulse Ox 03/02/19 07:23 117 H 03/02/19 06:25 98.0 F 120 H 14 140/87 H 95 03/02/19 04:16 98.4 F 113 H 17 146/93 H 95 03/02/19 03:03 117 H 03/02/19 01:33 98.3 F 118 H 20 H 144/92 H 96 03/02/19 00:36 98.3 F 118 H 20 H 144/92 H 96 03/01/19 23:39 97.6 F L 122 H 20 H 139/91 H 96 03/01/19 22:52 98 F 126 H 21 H 149/92 H 91 03/01/19 22:37 98 F 141 H 24 H 139/101 H 95 03/01/19 20:13 126 H 19 H 176/91 H 96 Oxygen Flow Rate (L/min) 2 Oxygen Delivery Method Nasal Cannula Weight: 97.522 kg Body Mass Index (BMI) 29.9 Physical Examination:Patient is afebrile. Patient is in no acute distress. Oral mucosa is pink and moist. Neck is supple. Trachea is midline. There is no JVD. Skin is pale. Cranial nerves II through XII are grossly intact. There are no focal motor or sensory deficits noted. Heart was regular and tachycardic. Lungs are diminished on the left. Abdomen is soft. Bowel sounds are normal. There is no tenderness. Intake and Output for Last 24 Hours 02/27/19 02/28/19 03/01/19 23:59 23:59 23:59 Intake Total 1000 / 1000 Balance 1000 / 1000 Laboratory Tests Past 24 Hrs 03/01/19 03/01/19 03/01/19 17:30 17:30 17:30 WBC DIRECTOR CARD Corrected WBC 7.6 RBC 2.23 L Hgb 6.7 L Hct 22.2 L MCV 99.6 H MCH 30.0 MCHC 30.2 L RDW Std Deviation 63.4 H RDW Coeff of Ismael 19.0 H Plt Count 21 L* MPV 12.7 H Neut % (Auto) Not Reportable Absolute Neuts (auto) 4.9 Absolute Lymphs (auto) 2.28 Total Counted 100 Neutrophils % (Manual) 61 Band Neutrophils % 4 Lymphocytes % (Manual) 30 Monocytes % (Manual) 1 Metamyelocytes % 1 Myelocytes % 3 H Blast Cells % Nucleated RBCs/100 WBC 10 H Diff Path Review May foll Platelet Estimate MKD DEC Polychromasia Hypochromasia Anisocytosis 1+ Microcytosis Sodium 144 Potassium 2.1 L* Chloride 94 L Carbon Dioxide 44.0 H Anion Gap 6 BUN 26 H Creatinine 0.54 L Estim Creat Clear Calc 172.37 Est GFR (MDRD) Af Amer 206 Est GFR (MDRD) Non-Af 170 BUN/Creatinine Ratio 48.1 H Glucose 148 H Lactic Acid 2.3 H Calcium 7.6 L Magnesium Total Bilirubin 1.40 H AST 61 H ALT 87 H Alkaline Phosphatase 137 H Total Protein 6.0 L Albumin 2.3 L Globulin 3.7 Albumin/Globulin Ratio 0.6 L Urine Color Urine Clarity Urine pH Ur Specific [place] Urine Protein Urine Glucose (UA) Urine Ketones Urine Occult Blood Urine Nitrite Urine Bilirubin Urine Urobilinogen Ur Leukocyte Esterase Urine RBC Urine WBC Ur Squamous Epith Cells Urine Bacteria Urine Mucus Blood Type Antibody Screen Crossmatch 03/01/19 03/01/19 03/01/19 18:15 20:20 21:50 WBC Corrected WBC RBC Hgb Hct MCV MCH MCHC RDW Std Deviation RDW Coeff of Ismael Plt Count MPV Neut % (Auto) Absolute Neuts (auto) Absolute Lymphs (auto) Total Counted Neutrophils % (Manual) Band Neutrophils % Lymphocytes % (Manual) Monocytes % (Manual) Metamyelocytes % Myelocytes % Blast Cells % Nucleated RBCs/100 WBC Diff Path Review Platelet Estimate Polychromasia Hypochromasia Anisocytosis Microcytosis Sodium Potassium Chloride Carbon Dioxide Anion Gap BUN Creatinine Estim Creat Clear Calc Est GFR (MDRD) Af Amer Est GFR (MDRD) Non-Af BUN/Creatinine Ratio Glucose Lactic Acid 1.8 Calcium Magnesium Total Bilirubin AST ALT Alkaline Phosphatase Total Protein Albumin Globulin Albumin/Globulin Ratio Urine Color Yellow Urine Clarity Sl. Cloudy Urine pH 6.5 Ur Specific [place] 1.015 Urine Protein 30 H Urine Glucose (UA) Normal Urine Ketones 15 H Urine Occult Blood 10 H Urine Nitrite Negative Urine Bilirubin 1 H Urine Urobilinogen 4 H Ur Leukocyte Esterase Negative Urine RBC 0-5 SEEN Urine WBC 0 SEEN Ur Squamous Epith Cells 0-5 SEEN Urine Bacteria 0 SEEN Urine Mucus 0 SEEN Blood Type A POSITIVE Antibody Screen NEGATIVE Crossmatch See Detail 03/02/19 03/02/19 05:26 05:26 WBC DIRECTOR CARD Corrected WBC 7.0 RBC 2.47 L Hgb 7.4 L Hct 23.8 L MCV 96.4 H MCH 30.0 MCHC 31.1 L RDW Std Deviation 57.0 H RDW Coeff of Ismael 18.5 H Plt Count 16 L* MPV Neut % (Auto) Not Reportable Absolute Neuts (auto) 4.6 Absolute Lymphs (auto) 1.89 Total Counted 100 Neutrophils % (Manual) 53 Band Neutrophils % 12 H Lymphocytes % (Manual) 27 Monocytes % (Manual) 3 Metamyelocytes % 3 H Myelocytes % 1 H Blast Cells % 1 H* Nucleated RBCs/100 WBC 10 H Diff Path Review May foll Platelet Estimate MKD DEC Polychromasia 1+ Hypochromasia 2+ Anisocytosis 2+ Microcytosis 1+ Sodium 143 Potassium 2.8 L Chloride 95 L Carbon Dioxide 39.0 H Anion Gap 9 BUN 22 H Creatinine 0.51 L Estim Creat Clear Calc 176.93 Est GFR (MDRD) Af Amer 220 Est GFR (MDRD) Non-Af 182 BUN/Creatinine Ratio 43.1 H Glucose 145 H Lactic Acid Calcium 7.2 L Magnesium 1.6 Total Bilirubin AST ALT Alkaline Phosphatase Total Protein Albumin Globulin Albumin/Globulin Ratio Urine Color Urine Clarity Urine pH Ur Specific [place] Urine Protein Urine Glucose (UA) Urine Ketones Urine Occult Blood Urine Nitrite Urine Bilirubin Urine Urobilinogen Ur Leukocyte Esterase Urine RBC Urine WBC Ur Squamous Epith Cells Urine Bacteria Urine Mucus Blood Type Antibody Screen Crossmatch Current Medications Potassium Chloride () 10 meq in 100 mls @ 100 mls/hr IV BOLUS Q1H LOLY Stop: 03/01/19 20:59 Levofloxacin (Levaquin Iv) 750 mg in 150 mls @ 100 mls/hr IV X1 ONE Stop: 03/01/19 21:17 Last Admin: 03/01/19 20:02 Dose: 100 mls/hr Documented by: Assessment/Plan 1) anemia and thrombocytopenia secondary to chemotherapy. Patient has a history of thrombocytopenia but this is worse than previous. Both episodes of intermittent mild hemoptysis. Plan: 1 units of blood ordered from the emergency department. 1 unit a pheresis platelet or 8 unit random donor platelet transfusion this morning. Check CBC in afternoon 2) chest pain and dyspnea with hemoptysis-doubt pneumonia, rule out PE. Plan: -CTA chest this morning -Continue antibiotic pending blood and sputum culture. 3) Hypokalemia to chemotherapy and malnutrition. on presentation his potassium was 2.1. Plan: Replace with p.o. and IV potassium ordered. Check magnesium level 4) Small cell lung cancer Plan: Chemotherapy on hold because of pancytopenia Compare CT scan of the chest from today and Follows up with Dr. Muñoz next week. cc: Dr. Spenser Muñoz; Dr. Gopal Garcia; Dr. Shea Hernandez
--- NOTE | 2019-03-02 09:31 | PN_ITS ---
Patient Problems: Active and Suspected Problems Pneumonia (Acute) Left upper lobe pneumonia (Acute) Subjective: Patient seen and examined. He was admitted with a complaint of fatigue and shortness of breath as well as a cough productive of brownish sputum with occasional hemoptysis. He was found to be hypokalemic and anemic as well as thrombocytopenic. Chest x-ray showed left midlung zone consolidation. He was started on IV diltiazem and azithromycin for community-acquired pneumonia and also transfused with 1 unit of packed red blood cells. Patient seen and examined this morning. He does say he feels much better than when he came in because he felt like he was going to yesterday when he came in. He denies any overt bleeding and still feels tired. He denies any fever or chills, chest pain, abdominal pain, diarrhea vomiting. Review of systems otherwise negative. Labs and vitals reviewed. Platelets have dropped to 16 from 21 on admission. Hemoglobin is up to 7.4 from 6.7 after he was transfused with 1 unit of packed red blood cells. Potassium is up to 2.8 from 2.1 on admission and magnesium is at 1.6. Vitals/I&O's: Vital Signs Temp Pulse Resp BP Pulse Ox 97.9 F 119 H 16 138/90 H 93 03/02/19 07:53 03/02/19 07:53 03/02/19 07:53 03/02/19 07:53 03/02/19 07:53 Oxygen Flow Rate (L/min) 2 Oxygen Delivery Method Nasal Cannula Weight: 179 lb 7.3 oz Body Mass Index (BMI) 25.7 Intake and Output for Last 24 Hours 02/28/19 03/01/19 03/02/19 23:59 23:59 23:59 Intake Total 1380 / 1380 1402 / 1402 Output Total 300 / 300 Balance 1380 / 1380 1102 / 1102 General: Alert, Cooperative, Lethargic HEENT: Atraumatic, PERRLA, EOMI, Normocephalic, - - has pale mucosa Oral: Dry Mucosa Neck: Supple, No JVD, Negative Carotid Bruits Lungs: - - decreased breath sounds bibasally, no wheezing or crackles Cardiovascular: Regular rate, Regular Rhythm, Normal S1, Normal S2, No murmurs Abdomen: Bowel Sounds Present, Soft, Non Tender, Non-Distended, No Hepato- splenomegaly Extremities: No clubbing, No cyanosis, No edema, Capillary Refill Less than 3 Seconds Skin: No rashes, No breakdown Musculoskeletal: No Tenderness to Palpation of Joints or Extremities Lymphatic: No Cervical, Supraclavicular, or Inguinal Adenopathy Neurological: Cranial nerves II-XII grossly intact, Neuro grossly intact Psych/Mental Status: Normal Affect, Appropriate, Alert and oriented to time, place, person, mood and affect Laboratory Results 03/01/19 17:30: WBC CARAMEL MAKER, Corrected WBC 7.6, RBC 2.23 L, Hgb 6.7 L, Hct 22.2 L, MCV 99.6 H, MCH 30.0, MCHC 30.2 L, RDW Std Deviation 63.4 H, RDW Coeff of Ismael 19.0 H, Plt Count 21 L*, MPV 12.7 H, Neut % (Auto) Not Reportable, Absolute Neut s (auto) 4.9, Absolute Lymphs (auto) 2.28, Total Counted 100, Neutrophils % (Manual) 61, Band Neutrophils % 4, Lymphocytes % (Manual) 30, Monocytes % (Manual) 1, Metamyelocytes % 1, Myelocytes % 3 H, Nucleated RBCs/100 WBC 10 H, Diff Path Review August, Platelet Estimate MKD DEC, Anisocytosis 1+ 03/01/19 17:30: Sodium 144, Potassium 2.1 L*, Chloride 94 L, Carbon Dioxide 44.0 H, Anion Gap 6, BUN 26 H, Creatinine 0.54 L, Estim Creat Clear Calc 172.37, Est GFR (MDRD) Af Amer 206, Est GFR (MDRD) Non-Af 170, BUN/Creatinine Ratio 48.1 H, Glucose 148 H, Calcium 7.6 L, Total Bilirubin 1.40 H, AST 61 H, ALT 87 H, Alkaline Phosphatase 137 H, Total Protein 6.0 L, Albumin 2.3 L, Globulin 3.7, Albumin/Globulin Ratio 0.6 L 03/01/19 17:30: Lactic Acid 2.3 H 03/01/19 18:15: Urine Color Yellow, Urine Clarity Sl. Cloudy, Urine pH 6.5, Ur Specific [place] 1.015, Urine Protein 30 H, Urine Glucose (UA) Normal, Urine K etones 15 H, Urine Occult Blood 10 H, Urine Nitrite Negative, Urine Bilirubin 1 H, Urine Urobilinogen 4 H, Ur Leukocyte Esterase Negative, Urine RBC 0-5 SEEN, Urine WBC 0 SEEN, Ur Squamous Epith Cells 0-5 SEEN, Urine Bacteria 0 SEEN, Urine Mucus 0 SEEN 03/01/19 20:20: Blood Type A POSITIVE, Antibody Screen NEGATIVE, Crossmatch See Detail 03/01/19 21:50: Lactic Acid 1.8 03/02/19 05:26: Sodium 143, Potassium 2.8 L, Chloride 95 L, Carbon Dioxide 39.0 H, Anion Gap 9, BUN 22 H, Creatinine 0.51 L, Estim Creat Clear Calc 176.93, Est GFR (MDRD) Af Amer 220, Est GFR (MDRD) Non-Af 182, BUN/Creatinine Ratio 43.1 H, Glucose 145 H, Calcium 7.2 L, Magnesium 1.6 03/02/19 05:26: WBC CARAMEL MAKER, Corrected WBC 7.0, RBC 2.47 L, Hgb 7.4 L, Hct 23.8 L, MCV 96.4 H, MCH 30.0, MCHC 31.1 L, RDW Std Deviation 57.0 H, RDW Coeff of Ismael 18.5 H, Plt Count 16 L*, Neut % (Auto) Not Reportable, Absolute Neuts (auto) 4.6, Absolute Lymphs (auto) 1.89, Total Counted 100, Neutrophils % (Manual) 53, Band Neutrophils % 12 H, Lymphocytes % (Manual) 27, Monocytes % (Manual) 3, Metamyelocytes % 3 H, Myelocytes % 1 H, Blast Cells % 1 H*, Nucleated RBCs/100 WBC 10 H, Diff Path Review August foll, Platelet Estimate MKD DEC, Polychromasia 1+, Hypochromasia 2+, Anisocytosis 2+, Microcytosis 1+ Diagnostic Data Chest X-Ray 03/01/19 16:07 IMPRESSION: Left midlung zone consolidation, concerning for pneumonia. Electronically Signed: Shahid Vega, at 16:35 EST Tel , Service support , Brain CT 03/01/19 16:55 IMPRESSION: No acute intracranial abnormality. Electronically Signed: Shahid Vega, at 18:14 EST Tel , Service support , KUB X-Ray 03/01/19 23:55 IMPRESSION: Somewhat prominent amount of bowel gas with gaseous dilatation of the transverse colon. at 0026 Reported and signed by: Joyce Sosa MD Electronically Signed: Joyce Sosa MD at 0:26 EST Tel , Service support , Current Medications Acetaminophen (Tylenol) 650 mg PO Q6H PRN PRN PRN Reason: Pain Score 1-3/Temp > 100.7 F Al Hydroxide/Mg Hydroxide (Mylanta Ii) 30 ml PO Q4H PRN PRN PRN Reason: indigestion/abdominal pain Albuterol Sulfate (Ventolin Aerosols) 2.5 mg INHALATION Q2H PRN PRN PRN Reason: Shortness of Breath/Wheezing Albuterol/Ipratropium (Duoneb) 3 ml INHALATION Q6H.RT LOLY Last Admin: 03/02/19 06:50 Dose: Not Given Documented by: Dextrose (D50w Syringe) 0 gm IV X1 PRN; Protocol PRN Reason: Hypoglycemia Glucagon () 1 mg IM .X1 PRN PRN Reason: Hypoglycemia Guaifenesin (Robitussin) 20 ml PO Q4H PRN PRN PRN Reason: COUGH Sodium Chloride () 250 mls @ 15 mls/hr IV .[id number] PRN PRN Reason: Saline Flush Azithromycin 500 mg/ Dextrose 255 mls @ 250 mls/hr IV Q24 LOLY Ceftriaxone Sodium (Rocephin) 1 gm in 50 mls @ 100 mls/hr IV Q24 LOLY Lorazepam (Ativan) 0.5 mg PO TID PRN PRN PRN Reason: ANXIETY Melatonin (Melatonin) 3 mg PO QHS PRN PRN PRN Reason: INSOMNIA Nicotine (Nicoderm Cq (Pbkc)) 21 mg TRANSDERM. DAILY LOLY Nutritional Formula (Lactose Free) (Ensure Enlive) 120 ml PO 4X/DAY [facility] Ondansetron HCl (Zofran) 4 mg IV Q8H PRN PRN PRN Reason: NAUSEA/VOMITING Oxycodone HCl (Oxyir) 5 - 10 mg PO Q6H PRN PRN PRN Reason: Pain Score 4-10/10 Last Admin: 03/02/19 01:12 Dose: 10 mg Documented by: Potassium Chloride (K-Dur) 40 meq PO BIDCM [facility] Senna/Docusate Sodium (Senokot-S, Laura-Colace) 2 tablet PO DAILY PRN PRN PRN Reason: CONSTIPATION Sodium Chloride () 10 - 40 ml IV UD PRN PRN Reason: SALINE FLUSH Last Admin: 03/02/19 05:24 Dose: 10 ml Documented by: STROKE Vital Signs/Narrative: Vital Signs Temp Pulse Resp BP Pulse Ox 03/02/19 07:53 97.9 F 119 H 16 138/90 H 93 03/02/19 07:23 117 H 03/02/19 06:25 98.0 F 120 H 14 140/87 H 95 Medical Necessity - Tobacco Use Smoking Status: Current some day smoker Assessment/Plan All Active Problems Pneumonia (Acute) Cellulitis (Acute) Sepsis (Acute) Thrombocytopenia (Acute) Hypokalemia (Acute) Left upper lobe pneumonia (Acute) 1. Thrombocytopenia and anemia * likely due to chemotherapy * his platelets are down to 16 today, from 21 on admission. Hb was 6.7, and is now 7.4, after being transfused wiht one unit of PRBC * has had 2 cycles of chemotherapy for small cell lung cancer * discussed with oncology, will transfuse with one unit of apheresed platelets * repeat CBC in the afternoon * 2. Sepsis due to community acquired pneumonia * his symptoms were thought to be due to severe sepsis from community acquired pneumonia on admission; he had SIRS criteria 2/4 and CXR showed evidence of left mid lung zone consolidation * however, per oncology, that consolidation is not new, and was present on CT scan of chest last month * respiratory panel, sputum culture and blood culture ordered * continue IV ceftriaxone and azithromycin until culture results are in * CTA of the chest done showed persistent worsening bulky lymphadenopathy in the left mediastinal side with left hilar lymphadenopathy and masslike density in case 90 facing some parts of the left-sided hilar structures with no visualized PE. Enlarging left apical nodule and new left pleural effusion with lower lobe atelectasis. Left upper lobe and left lingular consolidation due to probable postobstructive pneumonitis. There has been interval enlargement and lobulation of the adrenal glands since previous study on December 29, 2018 most consistent with metastatic disease and also has extensive bulky lymphadenopathy including supraclavicular lymph nodes. 3. Small cell lung cancer * has received 2 sessions of chemotherapy * oncology on board * CTA of chest as under 2. * 4. Hypokalemia: K was 2.1; came up to 2.8 with replacement. Will continue replacing and monitor 5. Hypocalcemia: calcium is 7.2 today,. corrected calcium for albumin is 8.6. Will monitor 6. Anxiety disorder: on ativan prn 7. Nicotine dependence: counseled to quit DVT prophylaxis: SCDs. Cant give lovenox o/a of severe thormbocytopenia Code Visit Inpatient E&M: 51316 Subs Hosp L3
[2019-03-02] MEDS: LORazepam 0.5 MG Tablet PO ×2 (09:49→18:09)
[2019-03-02] MEDS: Ceftriaxone 1 GM/50 ML BAG IV (09:50)
--- NOTE | 2019-03-02 12:25 | CASEMGMT ---
YESENIA CARTER re-admission note: Admitted to PCU 02/09/19 for Pneumonia and Cellulitis. Left AMA 02/10/19. Pt re-admitted 03/01/19 w/dx: Severe sepsis secondary to CAP. YESENIA CARTER SCOURING TRAIN OPERATOR EMMA to room to meet with patient for initial transition planning/care coordination assessment. YESENIA CARTER introduced self and role at [facility]. Pt voices understanding and consents to assessment at this time. Pt resting in bed in no distress at this time. Pt calm and answered all questions when asked. Noted flat affect. Pt is A/O at this time and answers all questions appropriately. Care providers and pharmacy confirmed. Pt's sister, Samantha, was listed as next of kin. Pt states that she has pneumonia at this time and would prefer for electrical tryout person to be his ex-girlfriend/friend, Maren, to be listed as person to notify at this time. Demographics info updated. RNMaya, also made aware. PCP: Radha Specialists: Dereki--oncology. Has Stage IV small lung CA and receiving chemo. Preferred Pharmacy: [facility] Insurance: [employer] Prescription Benefit: Yes Living Will/HPOA: does not have LW or HCPOA. is interested in information but is too tired to take care of that right now. Pt made aware if paperwork is not completed, that decisions would go to his daughters and pt states he is okay with that. Given Outreach Representative Rac card and made aware he can complete as an out-pt if he chooses to do so. Also made aware to ask for SW while @ [facility] if he decides later that he would like to complete paperwork while here. Pt voices understanding. LNOK: 2 daughters. Mother. Living Arrangements: Lives alone in 2-story home. Pt states he has been declining over the past few weeks and states, I haven't been taking care of myself. Pt states his ex-girlfriend/friend, Maren, has been staying with him the past week day and night and has been helping to take care of him. Pt states she has been doing everything for me, stating she has been assisting him with personal ADL's and home mgmt tasks. Pt states he has talked with Maren and she is planning on continuing to help him when he returns home. Pt states the only bathroom in his home is on the 2nd floor and that he has been having difficulty going up the stairs lately, again stating, since I haven't took care of myself. States his bedroom is also on the 2nd floor but that he has been sleeping on the main level. Transportation: Pt states he still drives and that Maren is available if he is not able to. DME: Denies using any DME. States he could use a BSC @ discharge d/t having so much difficulty with the stairs. Denies having home O2. Pt may need oxygen at discharge. Pt denies having preference of DME company. Given list of local DME companies. Pt agreeable to [facility]. HHC/SNF: No history of either. Pt states he wishes to return home @ discharge. Discussed option of HHC but pt declines at this time, stating that Maren would be available to help him and he does not think he will need HHC. Pt made aware, if he decides in the future he would like HHC, to discuss this with his PCP. Pt voices understanding. CM to follow for home oxygen needs and any further discharge planning/needs. Pt voices no further concerns/needs at this time. Advised pt to ask for CM if any further questions/concerns/needs arise. Voices understanding. PLAN: Home w/support of ex-GF/Friend, Maren. Pt would like BSC when returning home. Script placed on chart for MD to sign if pt discharges home over the weekend. May need oxygen @ [facility]. Will need Home oxygen testing completed prior to discharge. Instructions placed on chart for oxygen if pt qualifies. SW consult for coping/CA diagnosis, support, possible Palliative C/S Gonzalez DAVIS RN CM
--- NOTE | 2019-03-02 12:42 | NURSING ---
Called Dr. Muñoz's office and spoke to the nurse- pt was requesting, I just want to see my doctor. This RN relayed that Dr. Muñoz will sometimes round on pts in the hospital after office hours. RN at the office told this RN that he is out of town today and all weekend. Will relay information to pt.
[2019-03-02 13:47] LABS: Pathologist Review Reviewed
--- NOTE | 2019-03-02 13:55 | CASEMGMT ---
Social Work SW received referral from YADIEL Tian CM. SW met with pt and friend Maren. Pt stating he recently received a diagnosis of small cell lung cancer and is receiving chemotherapy. Pt has had multiple hospital stays over the past month. Inquired about AD and pt stating he does not want to deal with this right now. SW explained that if he is not able to make healthcare decisions the decision maker by law would be his children. Attempted to explore support systems and pt stating that Maren has been supportive and he is hopeful his two daughters will visit. Multiple times throughout conversation pt made statement, I don't want to here. SW encouraged verbalization of feelings but pt is quiet and not offering input. When SW inquired about corey and pt interest in visit from It Program[employer] pt becomes tearful and denies desire to see service line bus cleaner. Palliative Care screening tool completed and pt scored a 7. SW spoke with pt and Maren about Palliative care and explained what services they could possibly provide to pt. Pt is agreeable to referral to palliative care. Referral made to Ijeoma at Palliative and she states she will see pt early next week. Referral faxed and pt informed. SW will remain available should other needs arise. JOSE M Thakkar
[2019-03-02 14:12] LABS: M R Staph aureus DNA By PCR POSITIVE (Negative); Probe Check PASS
[2019-03-02 14:15] LABS: Hematocrit 22.9 % (40-54); Hemoglobin 7.2 g/dL (13.0-16.5); Mean Corp Hgb Conc 31.4 g/dL (32-36); Mean Corpuscular Hgb 30.3 pg (27.0-32.0); Mean Corpuscular Volume 96.2 fL (80-94); Mean Platelet Vol. 9.7 fl (6.2-12.0); POSITIVE COUNT YES; POSITIVE MORPHOLOGY YES; RBC Distribution Width CV 18.6 % (11.6-14.6); RBC Distribution Width SD 58.6 fl (35.1-43.9); Red Blood Count 2.38 M/mm3 (4.6-6.2)
[2019-03-02 14:21] LABS: Differential Indicated MANUAL DIFF
[2019-03-02 14:23] LABS: Platelet Count 40 K/mm3 (150-450)
[2019-03-02 15:16] LABS: Blast 2 % (0-0); Lymphocyte 33 % (19-41); Monocyte 2 % (0-10); Neutrophil-Band 14 % (0-5); Neutrophil-Segmented 49 % (47-70); Nucleated Red Bld Cells,Manual 17 % (0-5); Total Cells Counted 100 (MANUAL DIFF)
[2019-03-02 15:38] LABS: Platelet Estimate MOD DEC (ADEQ)
[2019-03-02 15:39] LABS: Anisocytosis 2+; Ovalocyte 1+
[2019-03-02 15:40] LABS: Polychromasia 1+; Target Cells RARE
--- NOTE | 2019-03-02 16:19 | PCM.DC.SUM ---
Discharge Date and Diagnosis - Problem List Patient Problems: Active and Suspected Problems Pneumonia (Acute) Left upper lobe pneumonia (Acute) Date of Admission: 03/01/19 Date of Discharge: 03/02/19 - Primary Discharge Diagnosis Active and Suspected Problems Pneumonia (Acute) Left upper lobe pneumonia (Acute) sepsis due to post obstructive pneumonia large pericardial effusion - Secondary Discharge Diagnosis Chronic Problems SCLC (small cell lung carcinoma) (Chronic) Anemia (Chronic) Nicotine abuse (Chronic) Hospital Course and Treatment Imaging Results: 03/02/19 07:41 CTA Chest W/WO Contrast [CT] Urgent oncology- Dr Baker Operations: None Procedures: None Summary of Care Provided: The patient is a 53 year old M who was admitted through the ED on 03/01/2019 with a complaint of shortness of breath and fatigue. Patient has a past medical history significant for small cell lung cancer and has had 2 sessions of chemotherapy. He had associated cough productive of brownish sputum and occasional hemoptysis. He was found to be severely hypokalemic in the ED potassium of 2.1 and hemoglobin was also 6.7. Platelets were also low at 21. Chest x-ray showed left midlung consolidation. He met SIRS criteria for sepsis and he was managed for sepsis due to community-acquired pneumonia based on chest x-ray findings. He was started on IV vancomycin and Zosyn and hydrated as well. Patient remained tachycardic and patient was reviewed with oncology were consulted. To rule out a PE, a chest CT was obtained which showed a large pericardial effusion which was larger than on previous CT. There was no evidence of PE but there is evidence of worsening pericardial effusion and persistent worsening bulky lymphadenopathy in the left mediastinum with left hilar lymphadenopathy masslike density in case any phase and some parts of the left hilar structures and new left pleural effusion as well. He also had extensive bulky lymphadenopathy. Patient's potassium was replaced and also he was transfused with 1 unit of packed red blood cell. Was also transfused 1 unit of a previous platelets and platelets went up to 40 after transfusion. However in light of persistent tachycardia with worsening pericardial effusion, patient was deemed at risk of cardiac tamponade and so decision was made per discussion with oncology to transfer patient to tertiary care center- [facility] Patient was seen and examined prior to discharge. He said he felt better and had no complaints. Review of systems otherwise negative. Labs and vitals reviewed. o/e: Vital Signs Height 5 ft 10 in Weight: 179 lb 7.3 oz Weight in Pounds 179.5 lbs Pulse Ox 94 Temperature 97.9 F Pulse Rate 118 Respiratory Rate 16 Blood Pressure 153/99 Blood Pressure Position Semi-Fowlers [] General: Alert, Cooperative, Lethargic HEENT: Atraumatic, PERRLA, EOMI, Normocephalic, - - has pale mucosa Oral: Dry Mucosa Neck: Supple, No JVD, Negative Carotid Bruits Lungs: - - decreased breath sounds bibasally, no wheezing or crackles Cardiovascular: Regular rate, Regular Rhythm, Normal S1, Normal S2, No murmurs Abdomen: Bowel Sounds Present, Soft, Non Tender, Non-Distended, No Hepato-splenomegaly Extremities: No clubbing, No cyanosis, No edema, Capillary Refill Less than 3 Seconds Skin: No rashes, No breakdown Musculoskeletal: No Tenderness to Palpation of Joints or Extremities Lymphatic: No Cervical, Supraclavicular, or Inguinal Adenopathy Neurological: Cranial nerves II-XII grossly intact, Neuro grossly intact Psych/Mental Status: Normal Affect, Appropriate, Alert and oriented to time, place, person, mood and affect Plan is for transfer to tertiary care center- [facility]; accepting physician is Dr Elias- hospitalist Patient Problems: Active and Suspected Problems Pneumonia (Acute) Left upper lobe pneumonia (Acute) - Physical Exam Vitals/I&O's: Vital Signs Temp Pulse Resp BP Pulse Ox 97.9 F 118 H 16 153/99 H 94 03/02/19 14:18 03/02/19 14:18 03/02/19 14:18 03/02/19 14:18 03/02/19 14:23 Oxygen Flow Rate (L/min) 2 Oxygen Delivery Method Nasal Cannula Weight: 179 lb 7.3 oz Body Mass Index (BMI) 25.7 Intake and Output for Last 24 Hours 02/28/19 03/01/19 03/02/19 23:59 23:59 23:59 Intake Total 1380 / 1380 2282 / 2282 Output Total 550 / 550 Balance 1380 / 1380 1732 / 1732 Laboratory Results 03/01/19 17:30: WBC TAPE STRINGER, Corrected WBC 7.6, RBC 2.23 L, Hgb 6.7 L, Hct 22.2 L, MCV 99.6 H, MCH 30.0, MCHC 30.2 L, RDW Std Deviation 63.4 H, RDW Coeff of Ismael 19.0 H, Plt Count 21 L*, MPV 12.7 H, Neut % (Auto) Not Reportable, Absolute Neuts (auto) 4.9, Absolute Lymphs (auto) 2.28, Total Counted 100, Neutrophils % (Manual) 61, Band Neutrophils % 4, Lymphocytes % (Manual) 30, Monocytes % (Manual) 1, Metamyelocytes % 1, Myelocytes % 3 H, Nucleated RBCs/100 WBC 10 H, Diff Path Review Reviewed, Platelet Estimate MKD DEC, Anisocytosis 1+ 03/01/19 17:30: Sodium 144, Potassium 2.1 L*, Chloride 94 L, Carbon Dioxide 44.0 H, Anion Gap 6, BUN 26 H, Creatinine 0.54 L, Estim Creat Clear Calc 172.37, Est GFR (MDRD) Af Amer 206, Est GFR (MDRD) Non-Af 170, BUN/Creatinine Ratio 48.1 H, Glucose 148 H, Calcium 7.6 L, Total Bilirubin 1.40 H, AST 61 H, ALT 87 H, Alkaline Phosphatase 137 H, Total Protein 6.0 L, Albumin 2.3 L, Globulin 3.7, Albumin/Globulin Ratio 0.6 L 03/01/19 17:30: Lactic Acid 2.3 H 03/01/19 18:15: Urine Color Yellow, Urine Clarity Sl. Cloudy, Urine pH 6.5, Ur Specific [place] 1.015, Urine Protein 30 H, Urine Glucose (UA) Normal, Urine Ketones 15 H, Urine Occult Blood 10 H, Urine Nitrite Negative, Urine Bilirubin 1 H, Urine Urobilinogen 4 H, Ur Leukocyte Esterase Negative, Urine RBC 0-5 SEEN, Urine WBC 0 SEEN, Ur Squamous Epith Cells 0-5 SEEN, Urine Bacteria 0 SEEN, Urine Mucus 0 SEEN 03/01/19 20:20: Blood Type A POSITIVE, Antibody Screen NEGATIVE, Crossmatch See Detail 03/01/19 21:50: Lactic Acid 1.8 03/02/19 05:26: Sodium 143, Potassium 2.8 L, Chloride 95 L, Carbon Dioxide 39.0 H, Anion Gap 9, BUN 22 H, Creatinine 0.51 L, Estim Creat Clear Calc 176.93, Est GFR (MDRD) Af Amer 220, Est GFR (MDRD) Non-Af 182, BUN/Creatinine Ratio 43.1 H, Glucose 145 H, Calcium 7.2 L, Magnesium 1.6 03/02/19 05:26: WBC TAPE STRINGER, Corrected WBC 7.0, RBC 2.47 L, Hgb 7.4 L, Hct 23.8 L, MCV 96.4 H, MCH 30.0, MCHC 31.1 L, RDW Std Deviation 57.0 H, RDW Coeff of Ismael 18.5 H, Plt Count 16 L*, Neut % (Auto) Not Reportable, Absolute Neuts (auto) 4.6, Absolute Lymphs (auto) 1.89, Total Counted 100, Neutrophils % (Manual) 53, Band Neutrophils % 12 H, Lymphocytes % (Manual) 27, Monocytes % (Manual) 3, Metamyelocytes % 3 H, Myelocytes % 1 H, Blast Cells % 1 H*, Nucleated RBCs/100 WBC 10 H, Diff Path Review May francine, Platelet Estimate MKD DEC, Polychromasia 1+, Hypochromasia 2+, Anisocytosis 2+, Microcytosis 1+ 03/02/19 13:00: MRSA (PCR) POSITIVE H 03/02/19 14:00: WBC TAPE STRINGER, Corrected WBC 7.2, RBC 2.38 L, Hgb 7.2 L, Hct 22.9 L, MCV 96.2 H, MCH 30.3, MCHC 31.4 L, RDW Std Deviation 58.6 H, RDW Coeff of Ismael 18.6 H, Plt Count 40 L*, MPV 9.7, Neut % (Auto) Not Reportable, Absolute Neuts (auto) 4.5, Absolute Lymphs (auto) 2.38, Total Counted 100, Neutrophils % (Manual) 49, Band Neutrophils % 14 H, Lymphocytes % (Manual) 33, Monocytes % (Manual) 2, Blast Cells % 2 H*, Nucleated RBCs/100 WBC 17 H, Diff Path Review May francine, Platelet Estimate MOD DEC, Polychromasia 1+, Anisocytosis 2+, Target Cells RARE, Ovalocytes 1+ Current Medications Acetaminophen (Tylenol) 650 mg PO Q6H PRN PRN PRN Reason: Pain Score 1-3/Temp > 100.7 F Al Hydroxide/Mg Hydroxide (Mylanta Ii) 30 ml PO Q4H PRN PRN PRN Reason: indigestion/abdominal pain Albuterol Sulfate (Ventolin Aerosols) 2.5 mg INHALATION Q2H PRN PRN PRN Reason: Shortness of Breath/Wheezing Albuterol/Ipratropium (Duoneb) 3 ml INHALATION Q6H.RT [facility] Last Admin: 03/02/19 13:00 Dose: Not Given Documented by: Dextrose (D50w Syringe) 0 gm IV X1 PRN; Protocol PRN Reason: Hypoglycemia Glucagon () 1 mg IM .X1 PRN PRN Reason: Hypoglycemia Guaifenesin (Robitussin) 20 ml PO Q4H PRN PRN PRN Reason: COUGH Sodium Chloride () 250 mls @ 15 mls/hr IV .[id number] PRN PRN Reason: Saline Flush Azithromycin 500 mg/ Dextrose 255 mls @ 250 mls/hr IV Q24 [facility] Last Infusion: 03/02/19 11:44 Dose: Infused Documented by: Ceftriaxone Sodium (Rocephin) 1 gm in 50 mls @ 100 mls/hr IV Q24 [facility] Last Infusion: 03/02/19 10:20 Dose: Infused Documented by: Potassium Chloride () 10 meq in 100 mls @ 100 mls/hr IV BOLUS Q1H [facility] Stop: 03/02/19 18:59 Last Admin: 03/02/19 15:01 Dose: 100 mls/hr Documented by: Lorazepam (Ativan) 0.5 mg PO TID PRN PRN PRN Reason: ANXIETY Last Admin: 03/02/19 09:49 Dose: 0.5 mg Documented by: Melatonin (Melatonin) 3 mg PO QHS PRN PRN PRN Reason: INSOMNIA Nicotine (Nicoderm Cq (Pbkc)) 21 mg TRANSDERM. DAILY [facility] Last Admin: 03/02/19 09:49 Dose: 21 mg Documented by: Nutritional Formula (Lactose Free) (Ensure Enlive) 120 ml PO 4X/DAY [facility] Last Admin: 03/02/19 14:23 Dose: Not Given Documented by: Ondansetron HCl (Zofran) 4 mg IV Q8H PRN PRN PRN Reason: NAUSEA/VOMITING Oxycodone HCl (Oxyir) 5 - 10 mg PO Q6H PRN PRN PRN Reason: Pain Score 4-10/10 Last Admin: 03/02/19 12:06 Dose: 10 mg Documented by: Potassium Chloride (K-Dur) 40 meq PO BIDCM LOLY Last Admin: 03/02/19 09:50 Dose: 40 meq Documented by: Senna/Docusate Sodium (Senokot-S, Laura-Colace) 2 tablet PO DAILY PRN PRN PRN Reason: CONSTIPATION Sodium Chloride () 10 - 40 ml IV UD PRN PRN Reason: SALINE FLUSH Last Admin: 03/02/19 05:24 Dose: 10 ml Documented by: Home Medications: Medications to take at Discharge Lorazepam [Ativan] 0.5 mg PO TID PRN PRN 02/08/19 Oxycodone HCl 1 - 2 tab PO Q6H PRN PRN 02/08/19 Potassium Chloride 20 meq PO DAILY 02/08/19 Primary Care Physician: Gopal Garcia MD [Primary Care Provider] - Disposition: Acute care Hospital Minutes spent on discharge:: 45 Patient Condition:: Guarded Medical Necessity - Tobacco Use Smoking Status: Current some day smoker Meaningful Use Info Meaningful Use Diagnoses (Choose all that apply): None applicable Code Visit Inpatient E&M: 23918 Disch Hosp
[2019-03-03 00:53] LABS: Corrected WBC 6.1 K/mm3 (4.4-11.0)
[2019-03-03 00:55] LABS: Absolute Lymphocyte Count 2.03 X10^3/uL (0.83-4.51); Absolute Neutrophil Count 3.3 X10^3/uL (2.0-7.7)
[2019-03-06 10:09] LABS: Pathologist Review Reviewed
[2019-03-06 10:24] LABS: Pathologist Review Reviewed
== END 2019-03-02 18:00 | disposition short-term general hospital (02) | DRG 720 ==
LOC: ED 17:25 → PCU 21:22
PROVIDERS: Admitting Provider Hospitalist; Emergency Provider Emergency Medicine; Family Provider Family Medicine; PCP Family Medicine; Referring Provider Hospitalist; Visit Provider Student in an Organized Health Care Education/Training Program
DX: A41.9 Sepsis, unspecified organism (principal); R65.20 Severe sepsis without septic shock; I31.3 Pericardial effusion (noninflammatory); J18.9 Pneumonia, unspecified organism; C34.90 Malignant neoplasm of unspecified part of unspecified bronchus or lung; C79.9 Secondary malignant neoplasm of unspecified site; R04.2 Hemoptysis; D61.818 Other pancytopenia; D64.81 Anemia due to antineoplastic chemotherapy; D69.59 Other secondary thrombocytopenia; T45.1X5A Adverse effect of antineoplastic and immunosuppressive drugs, initial encounter; Y92.9 Unspecified place or not applicable; E87.6 Hypokalemia; E83.51 Hypocalcemia; F41.9 Anxiety disorder, unspecified; F17.200 Nicotine dependence, unspecified, uncomplicated; Z79.899 Other long term (current) drug therapy; Z86.14 Personal history of Methicillin resistant Staphylococcus aureus infection
CPT/HCPCS: 36415; 70450; 71046; 71275; 74018; 80048; 80053; 81001; 83605; 83735; 85025; 86644; 86850; 86900; 86901; 86920; 86922; 86965; 87040; 87077; 87186; 87641; 93005; 94640; 97802; 99285; 99406; J7030; J7040; J7050; P9016; P9035; Q9967; A4216